=== PATIENT | male | born 1945 | race Caucasian/White ===

== ENCOUNTER 2016-07-22 01:22 | Inpatient (IN) | payer MEDICARE, BC ==
[2016-07-22 01:48] LABS: Hematocrit 37 % (42-52); Hemoglobin 11.9 g/dl (14.0-18.0); Mean Corpuscular HGB Conc 32 g/dl (31-36); Mean Corpuscular Hemoglobin 30 pg (27-31); Mean Corpuscular Volume 91 fL (80-94); Mean Platelet Volume 8 um3 (7.4-10.4); Red Blood Count 4.05 10^6/ul (4.0-5.4); Red Cell Distribution Width 14 % (10.5-15); White Blood Count 14.8 10^3/ul (3.5-10.8)
[2016-07-22 01:49] LABS: Add Diff/Slide Review? Slide Review Added; Comments Flag Yes
[2016-07-22 03:32] LABS: BUN/Creatinine Ratio 21.9 (8-20); Calcium 9.8 mg/dL (8.6-10.3); EGFR African American 89.8 (>60); EGFR Non-African American 69.8 (>60); Potassium 4.2 mmol/L (3.5-5.0); Total Bilirubin 0.2 mg/dL (0.2-1.0); Troponin I 0.05 ng/mL (<0.04)
--- NOTE | 2016-07-22 05:28 | ED ---
Porter Mcknight Billy, scribed for Edin Bueno MD on 07/22/16 at 0132 . HPI Chest Pain - HPI Summary HPI Summary: Patient is a 70 year-old male BIBA to [facility] presenting with constant midsternal chest pain starting earlier today. Per EMS, patient also c/o SOB on arrival, although he states that he is asymptomatic at this time in the ED. He was given 4x 81mg ASA and NTG [employer] which appear to have improved his symptoms. He was recently seen at [facility] yesterday with concern for pneumonia. - History of Current Complaint Chief Complaint: EDChestPainROMI Time Seen by Provider: 07/22/16 01:23 Hx Obtained From: Patient Onset/Duration: Started Hours Ago, Resolved Timing: Constant Initial Severity: Moderate Current Severity: None Pain Intensity: 0 Chest Pain Location: Mid Sternal Chest Pain Radiates: No Aggravating Factor(s): Nothing Alleviating Factor(s): Medication, NTG 123 Associated Signs and Symptoms: Positive: Shortness of Breath - Allergy/Home Medications Allergies/Adverse Reactions: Allergies Allergy/AdvReac Type Severity Reaction Status Date / Time Levofloxacin [From Levaquin] Allergy Joint Pain Verified 07/22/16 01:29 PMH/Surg Hx/FS Hx/Imm Hx Endocrine/Hematology History: Reports: Hx Thyroid Disease - hypothyroidism Denies: Hx Diabetes Cardiovascular History: Reports: Hx Hypercholesterolemia, Hx Hypertension Denies: Hx Pacemaker/ICD Respiratory History: Reports: Hx Chronic Obstructive Pulmonary Disease (COPD) Denies: Hx Asthma Musculoskeletal History: Reports: Hx Arthritis Sensory History: Denies: Hx Hearing Aid Psychiatric History: Denies: Hx Panic Disorder - Cancer History Cancer Type, Location and Year: BLADDER - Surgical History Surgery Procedure, Year, and Place: CARDIAC CATH 1989, BLADDERY SURGERY X2 1995 , PROSTATE BX 2007, Infectious Disease History: No Infectious Disease History: Denies: Traveled Outside the [place] in Last 30 Days - Family History Known Family History: Positive: Cardiac Disease, Hypertension, Diabetes, Other - CVA - Social History Lives: With Family Alcohol Use: None Hx Substance Use: No Substance Use Type: Reports: None Hx Tobacco Use: No Smoking Status (MU): Never Smoked Tobacco Review of Systems Positive: Chest Pain Positive: Shortness Of Breath All Other Systems Reviewed And Are Negative: Yes Physical Exam Triage Information Reviewed: Yes Vital Signs On Initial Exam: Initial Vitals Temp Pulse Resp BP Pulse Ox 98 F 63 17 178/81 97 07/22/16 01:24 07/22/16 01:24 07/22/16 01:24 07/22/16 01:24 07/22/16 01:24 Vital Signs Reviewed: Yes Appearance: Positive: No Pain Distress, Thin Skin: Positive: Warm Eyes: Positive: EOMI, VONNIE ENT: Positive: Hearing grossly normal Neck: Positive: Supple Respiratory/Lung Sounds: Positive: Clear to Auscultation, Breath Sounds Present Cardiovascular: Positive: RRR Abdomen Description: Positive: Nontender, Soft Bowel Sounds: Positive: Present Musculoskeletal: Positive: Strength/ROM Intact Neurological: Positive: Sensory/Motor Intact, Alert, Oriented to Person Place, Time Psychiatric: Positive: Affect/Mood Appropriate Diagnostics - Vital Signs Vital Signs Temp Pulse Resp BP Pulse Ox 07/22/16 01:24 98 F 63 17 178/81 97 - Laboratory Lab Results: Lab Results 07/22/16 07/22/16 07/22/16 Range/Units 01:38 01:38 01:38 WBC 14.8 H (3.5-10.8) 10^3/ul RBC 4.05 (4.0-5.4) 10^6/ul Hgb 11.9 L (14.0-18.0) g/dl Hct 37 L (42-52) % MCV 91 (80-94) fL MCH 30 (27-31) pg MCHC 32 (31-36) g/dl RDW 14 (10.5-15) % Plt Count 259 (150-450) 10^3/ul MPV 8 (7.4-10.4) um3 Neut % (Auto) 86.3 H (38-83) % Lymph % (Auto) 4.1 L (25-47) % Sawyer % (Auto) 6.9 (1-9) % Eos % (Auto) 0.6 (0-6) % Baso % (Auto) 2.1 H (0-2) % Absolute Neuts (auto) 12.7 H (1.5-7.7) 10^3/ul Absolute Lymphs (auto) 0.6 L (1.0-4.8) 10^3/ul Absolute Monos (auto) 1.0 H (0-0.8) 10^3/ul Absolute Eos (auto) 0.1 (0-0.6) 10^3/ul Absolute Basos (auto) 0.3 H (0-0.2) 10^3/ul Absolute Nucleated RBC 0.01 10^3/ul Nucleated RBC % 0 Sodium 136 (133-145) mmol/L Potassium 4.2 (3.5-5.0) mmol/L Chloride 103 (101-111) mmol/L Carbon Dioxide 26 (22-32) mmol/L Anion Gap 7 (2-11) mmol/L BUN 23 (6-24) mg/dL Creatinine 1.05 (0.67-1.17) mg/dL Est GFR ( Amer) 89.8 (>60) Est GFR (Non-Af Amer) 69.8 (>60) BUN/Creatinine Ratio 21.9 H (8-20) Glucose 124 H (70-100) mg/dL Lactic Acid 2.6 H* (0.5-2.0) mmol/L Calcium 9.8 (8.6-10.3) mg/dL Total Bilirubin 0.20 (0.2-1.0) mg/dL AST 18 (13-39) U/L ALT 28 (7-52) U/L Alkaline Phosphatase 96 (34-104) U/L Troponin I 0.05 H* (<0.04) ng/mL Total Protein 7.0 (6.4-8.9) g/dL Albumin 4.0 (3.2-5.2) g/dL Globulin 3.0 (2-4) g/dL Albumin/Globulin Ratio 1.3 (1-3) Result Diagrams: 07/22/16 01:38 07/22/16 01:38 Lab Statement: Any lab studies that have been ordered have been reviewed, and results considered in the medical decision making process. - Radiology CXR Xray Interpretation: No Acute Changes Radiology Interpretation Completed By: ED Physician - EKG 0121 EKG Interpretation: sinus bradycardia 57 bpm, LBBB Re-Evaluation - Re-Evaluation First Eval Re-Evaluation Time: 07:12 - repeat troponin elevated, will admit Chest Pain Course/Dx - Diagnoses Provider Diagnoses: Chest pain Discharge - Discharge Plan Condition: Stable Disposition: HOME Patient Education Materials: Chest Pain (ED) Referrals: Tony Garner DO [Primary Care Provider] - The documentation as recorded by the Porter lopez Billy accurately reflects the service I personally performed and the decisions made by me, Edin Bueno MD.
--- NOTE | 2016-07-22 07:58 | RAD ---
INDICATION: Chest pain COMPARISON: None TECHNIQUE: PA and lateral views of the chest were obtained. FINDINGS: The heart and mediastinum are normal in size and contour. The lungs are grossly clear. There is no evidence of large pleural effusion. Visualized bones are normal for the patient's age. There is no radiographic evidence of free air beneath the diaphragm IMPRESSION: No radiographic evidence of acute cardiopulmonary disease.
[2016-07-22] MEDS ORDERED: Nitroglycerin TAB 0.4 MG* 0.4 MG TAB SL ONE (08:18)
[2016-07-22] MEDS ORDERED: Ticagrelor* 90 MG TAB PO ONE (08:55)
[2016-07-22] MEDS ORDERED: Atorvastatin* 80 MG TAB PO ONE (08:55)
[2016-07-22] MEDS ORDERED: Heparin VIAL(*) 5000 UNITS/ML VIAL (FIVE THOUSAND) IV SCH (09:00)
[2016-07-22] MEDS ORDERED: Heparin DRIP 25,000 UNITS(*) 25,000 UNITS/500 ML BAG IVPB SCH (09:00)
[2016-07-22] MEDS: Aspirin Low Dose CHEW TAB* 81 MG PO SCH (09:15)
[2016-07-22] MEDS ORDERED: Heparin VIAL(*) 5000 UNITS/ML VIAL (FIVE THOUSAND) ONE (09:27)
[2016-07-22] MEDS ORDERED: Heparin DRIP 25,000 UNITS(*) 25,000 UNITS/500 ML BAG ONE (09:27)
--- NOTE | 2016-07-22 11:52 | ECHO ---
[id number] : 1945 Date: 07/22/2016 Age: 70y Height: 172.7 cm / 68.0 in Weight: 65.8 kg / 145.0 lbs Sex: M BSA: 1.8 Room#: 432 Admit Date#: 07/22/2016 Type: Inpatient Referring: Tatiana Waller Reading: Magnus Sommer DO Fermentation Engineer: Liza Rivera RN RDCS CC: Tony Garner DO Transthoracic Echocardiogram Indication: NSTEMI BP: 156/73 HR: 65 Rhythm: NSR with PACs Findings History: HTN, HLD, COPD, thyroid disease, LBBB Technical Comments: The study quality is fair. The study is technically limited due to the patient's history of COPD. Completed at 1145. Left Ventricle: The left ventricular chamber size is normal. Mild concentric left ventricular hypertrophy is observed. Left ventricular systolic function is at the lower limits of normal. The estimated ejection fraction is 50-55%. There is a left ventricular septal wall motion abnormality observed, possibly due to the presence of a left bundle branch block. There is no consistent Doppler evidence of clinically significant diastolic dysfunction. Left Atrium: The left atrial chamber size is normal. Right Ventricle: The right ventricular cavity size is normal. The right ventricular global systolic function is low normal. Right Atrium: The right atrial cavity size is normal. Aortic Valve: The aortic valve is trileaflet. There is evidence of aortic sclerosis without stenosis. There is aortic annular calcification.that is mild There is a trace of aortic regurgitation. Mitral Valve: The mitral valve leaflets are mildly thickened. There is mild mitral regurgitation. There is no evidence of mitral stenosis. Tricuspid Valve: The tricuspid valve leaflets are normal. There is trace to mild tricuspid regurgitation. There is evidence of mild pulmonary hypertension. Pulmonic Valve: The pulmonic valve structure is not well visualized. There is a trace pulmonic regurgitation. There is no pulmonic stenosis. Pericardium: There is no significant pericardial effusion. A pericardial fat pad is visualized. Aorta: There is no dilatation of the ascending aorta. The aortic arch is not well visualized. The aortic root is normal in size. Pulmonary Artery: The main pulmonary artery is not well visualized. Venous: The inferior vena cava appears normal in size. There is a greater than 50% respiratory change in the inferior vena cava dimension. Conclusions The left ventricular chamber size is normal. Mild concentric left ventricular hypertrophy is observed. Left ventricular systolic function is at the lower limits of normal with an estimated ejection fraction of 50-55%. There is a left ventricular septal wall motion abnormality observed, possibly due to the presence of a left bundle branch block. The inferoapical segment is not well visualized. The left atrial chamber size is normal. The right ventricular cavity size is normal The right ventricular global systolic function is low normal. There is evidence of aortic sclerosis without stenosis. There is mild mitral regurgitation. There is evidence of mild pulmonary hypertension. No prior studies available for comparison at time of interpretation. Measurements Name Value Normal Range RVDdMajor (2D) 3.4 cm (2.2 - 4.4) RAd ISD 4CH 3.9 cm (3.4 - 4.9) RA (A4C)W 4.1 cm (2.9 - 4.6) IVSd (2D) 1.2 cm (0.6 - 1) LVPWd (2D) 1.1 cm (0.6 - 1) LVIDd (2D) 4 cm (3.6 - 5.4) LVIDs (2D) 3.3 cm - LV FS (2D) 18 % (25 - 45) Aortic Annulus 1.8 cm (1.4 - 2.6) Ao root diameter (2D) 2.5 cm (2.1 - 3.5) Ascending Ao 2.8 cm (2.1 - 3.4) LA dimension (AP) 2D 3.5 cm (2.3 - 3.8) LAd ISD 4CH 3.8 cm (2.9 - 5.3) LA ISD 4CH W 3.9 cm (2.5 - 4.5) Name Value Normal Range LA ESV SP 4CH (A/L) 34 ml - LA ESV SP 2CH (A/L) 45 ml - LA ESV BP (A/L) 47 ml - LA ESV BP (A/L) index 26.3 ml/m2 - LA ESV SP 4CH (MOD) 31 ml - LA ESV SP 2CH (MOD) 42 ml - Name Value Normal Range MV E-wave Vmax 1 m/sec - MV deceleration time 234 msec - MV A-wave Vmax 1 m/sec - MV E:A ratio 1 ratio - LV septal e' Vmax 0.07 m/sec - LV lateral e' Vmax 0.08 m/sec - LV E:e' septal ratio 14.3 ratio - LV E:e' lateral ratio 12.5 ratio - Name Value Normal Range AV Vmax 1.9 m/sec - AV VTI 40.8 cm - AV peak gradient 14.6 mmHg - AV mean gradient 7.8 mmHg - LVOT diameter 2 cm - LVOT Vmax 1.2 m/sec - LVOT VTI 24.8 cm - DUDLEY (continuity Vmax) 2 cm2 - DUDLEY (continuity VTI) 1.9 cm2 - Name Value Normal Range TR Vmax 3.2 m/sec - TR peak gradient 41 mmHg - RAP 3 mmHg - RVSP 44 mmHg - IVC diameter 1.5 cm - Name Value Normal Range PV Vmax 0.9 m/sec -
[2016-07-22] MEDS: Omeprazole CAP* 20 MG PO SCH (12:40)
[2016-07-22] MEDS: Losartan TAB* 25 MG PO SCH (12:42)
[2016-07-22] MEDS: Tamsulosin CAP* 0.4 MG PO SCH (12:43)
[2016-07-22] MEDS: Levothyroxine TAB* 50 MCG TAB PO SCH (12:43)
--- NOTE | 2016-07-22 12:48 | CONSULT ---
Subjective Date of Service: 07/22/16 Interval History: DATE OF ADMISSION: 07/22/16 ATTENDING PHYSICIAN: Dr. River/ Tatiana Waller, STAFFING CONSULTANT/Hospitalist PRIMARY CARE PROVIDER: Dr. Dez Garner. CC: Chest pain Reason for consult: NSTEMI HISTORY OF PRESENT ILLNESS: Mr. Anderson is a 70-year-old male with a past medical history of previous 50- year smoking history, COPD, hyperlipidemia, LBBB long-standing. Has had multiple course of antibiotics over last several months for pneumonia/copd also has been given steroids.. Tuesday appt with Dr. Garner dizzy and orthostatic. Admitted to [place] low grade fever but no infectious symptoms. Separate issue from respiratory has had chest discomfort radiating to bilateral shoulders and jaw for several months at least. Patient states this happens when doing activity (had episode walking to mailbox Tuesday night) relieved with rest although states usually when not doing anything. He has had episodes when laying on right side, also with nebulizer treatment.. Last night was walking to bathroom had severe episode relieved with SL NTG x 3 and asa 81 mg x 1 in EMS. Had some mild jaw discomfort in ER self-resolved. Pain free at this time. No blood transfusion history. Baby aspirin does make arms bruise easily but he does not think taking dual anti-platelet therapy for at least a year should be an issue. No elective surgeries being planned. No palpitations, syncope or edema. Was given 180 mg of brillinta and IV heparin bolus and infusion after ruled in for ACS. Pmhx LBBB since 1987 or 1989 had coronary angiogram about that time was told ok HTN Remote bladder cancer COPD History of bladder cancer diagnosed and treated in 1995 status post 2 bladder surgeries and he has had 2 negative biopsies since. Hypothyroidism. Soc Hx: Drinks about 1 and 1/2 light beers/day, had been drinking up to 4 beers a day at one point but not recently. Smoked 1 PPD from age 18 to age 64 to Kay (at bedside) also daughter present. She is retired nursing supervisor veneer at [employer] Fam Hx: Mother had CABG x 2 in her 50's Medications Active Medications: Albuterol/Ipratropium (Duoneb Neb.Ena*) 1 neb INH Q4H PRN PRN Reason: SOB/WHEEZING Aspirin (Aspirin Low Dose Tab*) 81 mg PO DAILY HERMES Last Admin: 07/22/16 09:15 Dose: 81 mg Heparin Sodium (Porcine) (Heparin Vial(*)) 0 units IV .PER PROTOCOL HERMES PRN Reason: Protocol Last Admin: 07/22/16 09:33 Dose: 4,900 units Heparin Sodium/Dextrose (Heparin Drip 25,000 Units(*)) 25,000 units in 500 mls @ 0 mls/hr IVPB .PER RATE HERMES; Per Protocol PRN Reason: Protocol Last Admin: 07/22/16 09:34 Dose: 21 mls/hr Levothyroxine Sodium (Synthroid Tab*) 50 mcg PO DAILY [facility] Losartan Potassium (Cozaar Tab*) 100 mg PO DAILY [facility] Omeprazole (Prilosec Cap*) 40 mg PO DAILY [facility] Tamsulosin HCl (Flomax Cap*) 0.4 mg PO DAILY [facility] Home Medications: Albuterol HFA INHALER* 90 mcg INH BID 07/22/16 [History Confirmed 07/22/16] Bactrim DS 800/160 TAB* PO BID 07/22/16 [History] Losartan Potassium 100 mg PO DAILY 07/22/16 [History Confirmed 07/22/16] Omeprazole CAP* 40 mg PO DAILY 07/22/16 [History Confirmed 07/22/16] Symbicort 160/4.5 (NF) INH BID 07/22/16 [History] Synthroid 50 mcg PO DAILY 07/22/16 [History Confirmed 07/22/16] Tamsulosin HCl 0.4 mg PO DAILY 07/22/16 [History Confirmed 07/22/16] Review of Systems - Review of Systems Constitutional Symptoms: Negative: Weight Gain, Weight Loss, Weakness, Fatigue, Night Sweats, Unexplained Falls Dermatology: Negative: Rash, Skin Lesions, Skin Lumps HEENT: Negative: Change in Hearing, Vertigo Eyes: Negative: Change in Vision, Double Vision Thyroid: Positive: Primary Hypothyroidism Negative: Tremor, Frequent Defecation, Constipation, Palpitations, Primary Hyperthyroidism, Weight Loss, Weight Gain Pulmonary: Positive: Cough, Respiratory Distress, Shortness of Breath, COPD Cardiology: Positive: Chest Pain, Shortness of Breath Negative: Palpitations, Swelling of Ankles, Peripheral Vascular Dis, Edema, Syncope, Claudication, Paroxysmal Nocturnal Dyspnea, Orthopnea Gastroenterology: Negative: Abdominal Pain, Nausea, Vomiting, Anorexia, Indigestion, Difficulty Swallowing, Heartburn, Constipation, Diarrhea Genital - Urinary: Negative: Dysuria, Hematuria, Polyuria Musculoskeletal: Positive: Joint Stiffness Negative: Joint Pain, Arthritis, Low Back Pain Endocrinology: Positive: Thyroid Problems Negative: Adrenal Problems, Gonadal Problems, Obesity, Diabetes, Hyperglycemia, Hypoglycemia, Diabetic Foot Ulcers, Calluses Hematologic/Lymphatic: Positive: Easy Brusing Negative: Hx Leukemia, Hx Lymphoma, Use of Anticoagulant, Use of Antiplatelet Drugs Neurology: Negative: Normal, Headaches, Migraines, Change in Vision, Diplopia, Dizziness , Change in Balancing, Change in Coordination, Change in Memory, Change in Speech, Change in Sphincter Function, Change in Walking, Numbness\Paresthesiae, Unexplained Weakness, Hx of Stroke\TIA, Hx Seizures, Other Psychiatry: Negative: Depressed Mood, Adhedonia, Guilt Feelings, Tearfulness, Unusual Fatigue Allergic/Immunologic: Positive: Hx Seasonal Allergies, Athsma Negative: Hx Anaphylaxis, Hx Angioedema, Hx HIV, Immunocompromise Review of Systems Statement: All other review of systems negative, unless stated above. Objective Vital Signs: Temp Pulse Resp BP Pulse Ox 97.5 F 59 16 156/73 97 07/22/16 10:02 07/22/16 10:02 07/22/16 10:02 07/22/16 10:02 07/22/16 10:02 Appearance: nad, pleasant Ears/Nose/Mouth/Throat: Clear Oropharnyx, Mucous Membranes Moist Neck: NL Appearance and Movements; NL JVP Respiratory: Symmetrical Chest Expansion and Respiratory Effort, - - crackles left base Cardiovascular: NL Sounds; No Murmurs; No JVD, RRR, No Edema Abdominal: NL Sounds; No Tenderness; No Distention Extremities: No Edema Skin: No Rash or Ulcers Neurological: Alert and Oriented x 3 Laboratory Results: 07/22/16 01:38 07/22/16 01:38 INR (Anticoag Therapy) 0.95 (0.89-1.11) 07/22/16 09:05 APTT 26.9 seconds (26.0-36.3) 07/22/16 09:05 Total Bilirubin 0.20 mg/dL (0.2-1.0) 07/22/16 01:38 AST 18 U/L (13-39) 07/22/16 01:38 ALT 28 U/L (7-52) 07/22/16 01:38 Alkaline Phosphatase 96 U/L (34-104) 07/22/16 01:38 CK-MB (CK-2) 7.8 ng/mL (0.6-6.3) H 07/22/16 11:51 Total Protein 7.0 g/dL (6.4-8.9) 07/22/16 01:38 Albumin 4.0 g/dL (3.2-5.2) 07/22/16 01:38 Globulin 3.0 g/dL (2-4) 07/22/16 01:38 Albumin/Globulin Ratio 1.3 (1-3) 07/22/16 01:38 07/22/16 07/22/16 07/22/16 01:38 06:41 11:51 Troponin I 0.05 H* 0.21 H* 0.20 H* Diagnostic Imaging: EKG x 2: NSR, LBBB Assessment/Plan In summary, Rafita Anderson is a 70 year old man with a history of prior tobacco use, HTN, LBBB, recent pneumonia/COPD exacerbation admitted with acute NSTEMI, ? type 1 (plaque disruption) vs. type 2 (supply/demand related to lung disease). Has had class IV angina symptoms with rise of troponin diagnostic of acute AL - Continue aspirin 81 mg PO daily - Continue brilinta 90 mg PO BID - Continue heparin gtt - Continue intensive dose statin - Start beta-lobo soon - Cardiac catheterization with intent for revascularization recommended. Risks , benefits and alternatives discussed and patient would like to proceed. Discussed with Dr. Granados. Thank you for allowing me to participate in the cardiovascular care of this patient. Please do not hesitate to contact me with questions or concerns.
[2016-07-22 12:49] LABS: Troponin I 0.2 ng/mL (<0.04)
[2016-07-22] MEDS ORDERED: Midazolam* 1 MG/ML 5 ML VIAL (5 MG) ONE (13:31)
[2016-07-22] MEDS ORDERED: fentaNYL* 50 MCG/ML 2 ML VIAL (100 MCG VIAL) ONE (13:31)
[2016-07-22] MEDS ORDERED: Heparin 2 UNITS/ML IVPREMIX* 2,000 ML IV ONE (13:31)
[2016-07-22] MEDS ORDERED: Iohexol 350 (CONTRAST) 200 ML MDV IV ONE ×2 (13:31→14:41)
[2016-07-22] MEDS ORDERED: Lidocaine 1% INJ* 10 MG/ML 30 ML SDV ONE (13:31)
[2016-07-22] MEDS ORDERED: nitroGLYCERIN DRIP* 0 ML ONE (14:00)
[2016-07-22] MEDS ORDERED: Heparin VIAL(*) 5000 UNITS/ML VIAL (FIVE THOUSAND) SUBCUT SCH (14:00)
[2016-07-22] MEDS ORDERED: Heparin(*) 1000 UNIT/ML 10 ML VIAL CATH LAB IV ONE (14:07)
[2016-07-22] MEDS ORDERED: Nitroglycerin TAB 0.4 MG* 0.4 MG TAB SL PRN (15:06)
[2016-07-22] MEDS ORDERED: NS 0.9% 1000 ML* 1,000 ML IV SCH (15:15)
[2016-07-22] MEDS ORDERED: Metoprolol Tartrate TAB* 25 MG PO ONE (15:57)
[2016-07-22] MEDS ORDERED: Metoprolol Tartrate TAB* 25 MG ONE (16:02)
[2016-07-22] MEDS ORDERED: Atropine SYRINGE* 0.1 MG/ML 10 ML SYRINGE (1 MG) ONE (16:37)
[2016-07-22] MEDS ORDERED: nitroGLYCERIN DRIP* 250 ML ONE (17:13)
[2016-07-22] MEDS: Acetaminophen TAB* 325 MG PO PRN ×2 (17:23→21:12)
--- NOTE | 2016-07-22 19:17 | HP ---
HISTORY AND PHYSICAL: DATE OF ADMISSION: 07/22/16 ATTENDING PHYSICIAN: Dr. River *(report dictated by Leigh Osuna, PAUL). PRIMARY CARE PROVIDER: Dr. Dez Garner. CHIEF COMPLAINT: Chest pain. HISTORY OF PRESENT ILLNESS: Mr. Anderson is a 70-year-old male with a past medical history of previous 50-year smoking history, COPD, hyperlipidemia, who presents to the emergency department with complaints of intermittent chest pain worsening over the past 2 months. Mr. Anderson reports that he was diagnosed with "walking pneumonia" in the beginning of June where he did a full course of azithromycin and Bactrim and was recently admitted on 07/20/16 to yesterday 07/21/16 for bronchitis with possible sepsis and was given IV antibiotics, steroids and IV fluids. He was found to have a negative chest x-ray and negative blood cultures and was sent home yesterday. The patient reports he felt "terrible" last evening mostly due to the fact that he had not slept for 24 hours due to his hospital admission. He reports he went to bed and approximately half an hour later woke up with an acute onset of mid sternal chest wall pain that radiates both to the right and the left chest wall up his neck into his jaw and into his head. He reports the pain was 10/10 and felt like pressure. He called 911 and when the ambulance arrived, they gave him aspirin and sublingual nitro. He reports that sometime in the ambulance this pain resolved and when he arrived to [facility], the pain was resolved. He has not had any further chest pain while in the emergency department except during my evaluation he had an acute onset of first left upper jaw pain that radiated to his mid lower jaw and then into his right upper jaw. Then within 2 minutes, he said he was experiencing mid sternal chest pain that radiated to the left and right upper chest wall. The patient was going to be given a sublingual nitro but the pain resolved quickly. The patient reports that over the past 2 months he has had these exact intermittent symptoms but he states they have become more frequent and more intense. They happen when he is resting but states that it mostly happened when he is exerting himself. He denies any nausea or diaphoresis. He does report that he feels short of breath with these episodes. He reports that he does get occasional relief when he takes his albuterol inhaler. The patient denies any lower extremity swelling or orthopnea. The patient reports a history of left bundle branch block and prolapsed mitral valve and has not seen a upper tier probably since the where he underwent a cardiac catheterization due to some abnormalities on his EKG suspicious for "silent heart attacks." However, the patient reports that the cardiac catheterization was clean. In regards to the patient's respiratory illnesses, pneumonia and bronchitis, he reports that his cough has been improving. He did have a noted temperature of 101 on his admission on 07/20/16 at [place]. He denies any further fevers or chills. He denies nausea, vomiting or diarrhea. PAST MEDICAL HISTORY: 1. Hypertension. 2. Hyperlipidemia. 3. COPD. 4. History of anemia. 5. History of bladder cancer diagnosed and treated in 1995 status post 2 bladder surgeries and he has had 2 negative biopsies since. 6. Hypothyroidism. 7. History of prolapsed mitral valve. 8. History of left bundle branch block. 9. Cardiac catheterization in 1989 in which the patient reports was a "clean cath." HOME MEDICATIONS: 1. Albuterol HFA inhaler q.4-6 h. p.r.n. shortness of breath. 2. Losartan 100 mg p.o. daily. 3. Omeprazole 40 mg p.o. daily. 4. Symbicort 160 mg/4.5 INH b.i.d. 5. Synthroid 50 mcg p.o. daily. 6. Tamsulosin HCL 0.4 mg p.o. daily. The patient reports that he was prescribed an antibiotic from being discharged from [facility] yesterday, he is not sure what the antibiotic is. He is supposed to pick it up this morning, possible prescription for prednisone. Per patient, his is on her way in and knows which medication. ALLERGIES: LEVOFLOXACIN. FAMILY HISTORY: The patient's mother had a history of coronary artery disease with history of triple bypass. She passed of some "old age." His father is still alive and has a history of hypertension and congestive heart failure. SOCIAL HISTORY: The patient quit smoking 6 years ago and has a 50-year smoking history. Occasional alcohol use. Denies recreational drug use. The patient lives at home with his Kay Anderson who is her healthcare proxy. Her number is . He has two grown daughters. REVIEW OF SYSTEMS: As described above in the HPI, the patient has had upper respiratory illness since beginning of June diagnosed with pneumonia, then bronchitis. He reports that he has had intermittent night sweats over the past 2 weeks and had a temperature of 101.3 two days ago but has been afebrile since and denies chills. No nausea, vomiting, diarrhea. He reports he continues to have productive cough with white sputum but reports that this appears to be improving. He reports some intermittent shortness of breath. Please see above for description of chest pain. He denies gross hematuria or dysuria. No focal weakness or sensory loss. She denies visual complaints. No dysphagia, no arthralgias or myalgias. No rashes, lesions or open wounds. PHYSICAL EXAMINATION GENERAL APPEARANCE: Alert and oriented x3, 70-year-old male sitting up on the emergency department stretcher in no acute distress, good historian, slightly anxious. VITAL SIGNS: Temperature 98.0, heart rate 61, respirations 18, O2 sat 98% on 2 L, blood pressure 175/84. HEENT: Head is normocephalic, atraumatic. Pupils equal, reactive to light. Oropharynx is clear. Moist mucous membranes. The patient wears dentures which he does not currently have in. NECK: Supple. No cervical or supraclavicular lymphadenopathy. RESPIRATORY: Lungs are clear to auscultation bilaterally. Good aeration throughout. No accessory muscle use. CARDIAC: S1, S2. No murmurs, rubs or gallops appreciated. No lower extremity edema noted. 2+ DP pulses bilaterally. ABDOMEN: Distended, soft, nontender, obese. Normal bowel sounds x4. MUSCULOSKELETAL: Strength is 5/5 throughout. No clubbing or cyanosis noted. Full range of motion in all extremities. SKIN: No rashes, lesions or open wounds noted. Warm, pink and dry. NEUROLOGIC: Cranial nerves II through XII are intact. Moves all extremities equally. Sensation to lower extremities intact to light touch. PSYCH: Alert and oriented x3. Appears slightly anxious. LABORATORY DATA AND DIAGNOSTIC STUDIES: WBC is 14.8, HGB 11.9. HCT 37, MCV 91 , MCH 30, MCHC 32, RDW 14, platelet count 259. Sodium 136, potassium 4.2, chloride 103, carbon dioxide 26, anion gap 7, BUN 73, creatinine 1.05, glucose 124. Lactic acid 2.6, on repeat it was 1.7. Calcium 9.8, total bilirubin 0.20 , AST 18, ALT 28, alkaline phosphatase 96. Troponin; first troponin 0.05, second troponin 0.21. Total protein 7.0, albumin 4.0. Chest x-ray: No radiographic evidence for acute cardiopulmonary disease. EKG: Sinus bradycardia with a rate of 57 with a noted left bundle branch block. ASSESSMENT AND PLAN: Mr. Anderson is a 70-year-old male with a past medical history of tobacco abuse, chronic obstructive pulmonary disease, hypertension, hyperlipidemia, recent diagnosis of pneumonia and OBV visit at [place] for bronchitis with possible sepsis, discharged yesterday, who presents today with acute onset of chest pain starting in the middle of the night; however, reports worsening chest pain over 2 months. 1. Chest pain, rule out myocardial infarction. The patient will be admitted to telemetry on observation. His initial troponin was 0.05 and second troponin was 0.21. Plan to recheck the third troponin and if his troponin is elevated, we will start patient on heparin drip. We will ask for cardiology consult due to the patient's history of symptoms and he does have high risk factors. The patient's ROCKY score is 2. Continue sublingual nitro p.r.n., daily aspirin. We will order a transthoracic echocardiogram as the patient reports a history of prolapsed mitral valve, which has not been followed up on he thinks since the early . We will discuss the case with Cardiology. 2. Recent diagnosis of bronchitis with chronic obstructive pulmonary disease exacerbation. We will continue the patient's antibiotic once the confirms the medication. On exam, the patient's lungs are clear to auscultation and O2 saturations are within normal limits. DuoNeb's p.r.n. 3. Gastroesophageal reflux disease. Continue PPI. 4. Hypertension. Continue losartan 100 mg p.o. daily. 5. Hypothyroidism. Continue Synthroid 50 mcg p.o. daily. 6. DVT prophylaxis. Heparin subcu. 7. Code status. Full code. The patient's is the healthcare proxy. STATUS: Observation. TIME SPENT: Approximately 60 minutes was spent on this admission. LEIGH OSUNA NP CC: Dr. Tony Garner * [id number]/[facility] #: [id number] CAITLYN
[2016-07-22] MEDS: Metoprolol Tartrate TAB* 25 MG PO SCH (21:11)
[2016-07-22] MEDS: Ticagrelor* 90 MG TAB PO SCH (21:13)
[2016-07-23] MEDS: Albuterol/Ipratropium NEB.SOL* Albuterol 2.5 MG/Ipratropium 0.5 MG 3 ML INH PRN ×2 (00:40→11:02)
[2016-07-23 04:58] LABS: Hematocrit 35 % (42-52); Hemoglobin 11.4 g/dl (14.0-18.0); Mean Corpuscular HGB Conc 33 g/dl (31-36); Mean Corpuscular Hemoglobin 30 pg (27-31); Mean Corpuscular Volume 90 fL (80-94); Mean Platelet Volume 8 um3 (7.4-10.4); Red Blood Count 3.81 10^6/ul (4.0-5.4); Red Cell Distribution Width 13 % (10.5-15); White Blood Count 9.9 10^3/ul (3.5-10.8)
[2016-07-23 05:20] LABS: Albumin 3.3 g/dL (3.2-5.2); BUN/Creatinine Ratio 20.4 (8-20); Calcium 9.1 mg/dL (8.6-10.3); EGFR African American 97.2 (>60); EGFR Non-African American 75.6 (>60); Globulin 2.7 g/dL (2-4); HDL Cholesterol 38.7 mg/dL; Potassium 4.7 mmol/L (3.5-5.0); Total Bilirubin 0.4 mg/dL (0.2-1.0)
--- NOTE | 2016-07-23 08:08 | PN ---
Subjective Date of Service: 07/23/16 Interval History: Patient seen and examined at bedside. He reports feeling pretty well this morning and that he was able to walk around last evening. Patient has hematoma to right groin that is only mildly tender with palpation in one spot. Denies fever, chills, CP, SOB, abd pain, n/v. Telemetry: SR with LBBB 80s Family History: Unchanged from Admission Social History: Unchanged from Admission Past Medical History: Unchanged from Admission Objective Active Medications: Acetaminophen (Tylenol Tab*) 650 mg PO Q4H PRN PRN Reason: HEADACHE/PAIN Last Admin: 07/22/16 21:12 Dose: 650 mg Albuterol/Ipratropium (Duoneb Neb.Ena*) 1 neb INH Q4H PRN PRN Reason: SOB/WHEEZING Last Admin: 07/23/16 00:40 Dose: 1 neb Aspirin (Aspirin Low Dose Tab*) 81 mg PO DAILY [facility] Last Admin: 07/22/16 09:15 Dose: 81 mg Atorvastatin Calcium (Lipitor*) 80 mg PO 1700 [facility] Heparin Sodium (Porcine) (Heparin Vial(*)) 0 units IV .PER PROTOCOL [facility] PRN Reason: Protocol Last Admin: 07/22/16 09:33 Dose: 4,900 units Heparin Sodium/Dextrose (Heparin Drip 25,000 Units(*)) 25,000 units in 500 mls @ 0 mls/hr IVPB .PER RATE [facility]; Per Protocol PRN Reason: Protocol Last Admin: 07/22/16 09:34 Dose: 21 mls/hr Sodium Chloride (Ns 0.9% 1000 Ml*) 1,000 mls @ 100 mls/hr IV .per rate [facility] Last Admin: 07/22/16 15:48 Dose: 100 mls/hr Levothyroxine Sodium (Synthroid Tab*) 50 mcg PO DAILY [facility] Last Admin: 07/22/16 12:43 Dose: 50 mcg Losartan Potassium (Cozaar Tab*) 100 mg PO DAILY [facility] Last Admin: 07/22/16 12:42 Dose: 100 mg Metoprolol Tartrate (Lopressor Tab*) 12.5 mg PO BID [facility] Last Admin: 07/22/16 21:11 Dose: 12.5 mg Mometasone Furoate/Formoterol Fumar (Dulera 200/5 Mdi*) 2 puff INH BID [facility] Nitroglycerin (Nitroglycerin Tab 0.4 Mg*) 0.4 mg SL Q5M PRN PRN Reason: ANGINA Omeprazole (Prilosec Cap*) 40 mg PO DAILY [facility] Last Admin: 07/22/16 12:40 Dose: 40 mg Tamsulosin HCl (Flomax Cap*) 0.4 mg PO DAILY [facility] Last Admin: 07/22/16 12:43 Dose: 0.4 mg Ticagrelor (Brilinta*) 90 mg PO BID [facility] Last Admin: 07/22/16 21:13 Dose: 90 mg Trimethoprim/Sulfamethoxazole (Bactrim Ds 800/160 Tab*) 1 tab PO BID [facility] Vital Signs 07/22/16 07/22/16 07/22/16 09:55 10:02 13:25 Temperature 98.6 F 97.5 F Pulse Rate 62 59 Respiratory 20 16 16 Rate Blood Pressure 152/76 156/73 (mmHg) O2 Sat by Pulse 97 Oximetry 07/22/16 07/22/16 07/22/16 15:06 15:21 15:30 Temperature 98.1 F Pulse Rate 67 69 67 Respiratory 26 20 24 Rate Blood Pressure 173/78 167/80 189/78 (mmHg) O2 Sat by Pulse 95 96 97 Oximetry 07/22/16 07/22/16 07/22/16 15:36 15:51 16:00 Temperature Pulse Rate 65 67 Respiratory 21 21 25 Rate Blood Pressure 182/64 158/66 153/56 (mmHg) O2 Sat by Pulse 97 97 Oximetry 07/22/16 07/22/16 07/22/16 16:19 16:30 16:45 Temperature Pulse Rate 64 67 69 Respiratory 21 18 23 Rate Blood Pressure 158/66 153/56 (mmHg) O2 Sat by Pulse 96 96 98 Oximetry 07/22/16 07/22/16 07/22/16 17:00 17:02 17:15 Temperature Pulse Rate 68 54 63 Respiratory 23 23 27 Rate Blood Pressure 170/65 145/72 (mmHg) O2 Sat by Pulse 97 98 98 Oximetry 07/22/16 07/22/16 07/22/16 17:30 17:45 18:00 Temperature Pulse Rate 64 68 64 Respiratory 23 20 24 Rate Blood Pressure 153/65 160/65 147/61 (mmHg) O2 Sat by Pulse 98 98 98 Oximetry 07/22/16 07/22/1607/22/17 18:15 18:30 18:45 Temperature Pulse Rate 36 53 59 Respiratory 25 23 22 Rate Blood Pressure 126/58 124/59 122/55 (mmHg) O2 Sat by Pulse 95 94 93 Oximetry 07/22/16 07/22/16 07/22/16 19:00 19:15 19:30 Temperature Pulse Rate 35 52 42 Respiratory 21 21 22 Rate Blood Pressure 127/58 115/56 (mmHg) O2 Sat by Pulse 91 94 94 Oximetry 07/22/16 07/22/16 07/22/16 19:40 19:45 20:00 Temperature 98.6 F Pulse Rate 79 69 Respiratory 24 23 Rate Blood Pressure 132/52 (mmHg) O2 Sat by Pulse 97 96 Oximetry 07/22/16 07/22/16 07/22/16 20:15 20:30 21:00 Temperature Pulse Rate 69 71 43 Respiratory 24 25 19 Rate Blood Pressure 144/71 138/59 136/62 (mmHg) O2 Sat by Pulse 96 95 95 Oximetry 07/22/16 07/22/16 07/22/16 21:30 22:00 22:03 Temperature Pulse Rate 69 56 61 Respiratory 21 20 21 Rate Blood Pressure 154/64 143/63 (mmHg) O2 Sat by Pulse 96 94 94 Oximetry 07/22/16 07/22/16 07/22/16 22:30 23:00 23:27 Temperature Pulse Rate 60 52 Respiratory 20 16 21 Rate Blood Pressure 143/66 150/69 (mmHg) O2 Sat by Pulse 93 93 Oximetry 07/22/16 07/22/16 07/23/16 23:28 23:30 00:00 Temperature 98.5 F Pulse Rate Respiratory 18 Rate Blood Pressure 146/82 (mmHg) O2 Sat by Pulse Oximetry 07/23/16 07/23/16 07/23/16 00:55 01:00 01:01 Temperature Pulse Rate 89 Respiratory 18 18 Rate Blood Pressure 141/58 (mmHg) O2 Sat by Pulse 98 Oximetry 07/23/16 07/23/16 07/23/16 02:00 03:00 04:00 Temperature 98.0 F Pulse Rate Respiratory 18 16 Rate Blood Pressure 142/50 126/62 (mmHg) O2 Sat by Pulse Oximetry 07/23/16 07/23/16 07/23/16 05:00 06:00 07:00 Temperature Pulse Rate Respiratory 16 16 Rate Blood Pressure 156/70 119/56 (mmHg) O2 Sat by Pulse Oximetry Oxygen Devices in Use Now: None Appearance: Male patient, reclined in bed, in NAD Eyes: PERRLA Ears/Nose/Mouth/Throat: Clear Oropharnyx, Mucous Membranes Moist Neck: NL Appearance and Movements; NL JVP Respiratory: Symmetrical Chest Expansion and Respiratory Effort, Clear to Auscultation Cardiovascular: NL Sounds; No Murmurs; No JVD, RRR Abdominal: NL Sounds; No Tenderness; No Distention Extremities: No Edema Skin: - - right groin ecchymosis, dressing c/d/i, scattered ecchymosis to BUE Neurological: Alert and Oriented x 3 Lines/Tubes/Other Access: Clean, Dry and Intact Peripheral IV Nutrition: Taking PO's Result Diagrams: 07/23/16 04:40 07/23/16 04:40 Additional Lab and Data: Lab Results 07/22/16 07/22/16 07/22/16 Range/Units 01:38 01:38 01:38 WBC 14.8 H (3.5-10.8) 10^3/ul RBC 4.05 (4.0-5.4) 10^6/ul Hgb 11.9 L (14.0-18.0) g/dl Hct 37 L (42-52) % MCV 91 (80-94) fL MCH 30 (27-31) pg MCHC 32 (31-36) g/dl RDW 14 (10.5-15) % Plt Count 259 (150-450) 10^3/ul MPV 8 (7.4-10.4) um3 Neut % (Auto) 86.3 H (38-83) % Lymph % (Auto) 4.1 L (25-47) % Dale % (Auto) 6.9 (1-9) % Eos % (Auto) 0.6 (0-6) % Baso % (Auto) 2.1 H (0-2) % Absolute Neuts (auto) 12.7 H (1.5-7.7) 10^3/ul Absolute Lymphs (auto) 0.6 L (1.0-4.8) 10^3/ul Absolute Monos (auto) 1.0 H (0-0.8) 10^3/ul Absolute Eos (auto) 0.1 (0-0.6) 10^3/ul Absolute Basos (auto) 0.3 H (0-0.2) 10^3/ul Absolute Nucleated RBC 0.01 10^3/ul Nucleated RBC % 0 Sodium 136 (133-145) mmol/L Potassium 4.2 (3.5-5.0) mmol/L Chloride 103 (101-111) mmol/L Carbon Dioxide 26 (22-32) mmol/L Anion Gap 7 (2-11) mmol/L BUN 23 (6-24) mg/dL Creatinine 1.05 (0.67-1.17) mg/dL Est GFR ( Amer) 89.8 (>60) Est GFR (Non-Af Amer) 69.8 (>60) BUN/Creatinine Ratio 21.9 H (8-20) Glucose 124 H (70-100) mg/dL Lactic Acid 2.6 H* (0.5-2.0) mmol/L Calcium 9.8 (8.6-10.3) mg/dL Total Bilirubin 0.20 (0.2-1.0) mg/dL AST 18 (13-39) U/L ALT 28 (7-52) U/L Alkaline Phosphatase 96 (34-104) U/L Troponin I 0.05 H* (<0.04) ng/mL Total Protein 7.0 (6.4-8.9) g/dL Albumin 4.0 (3.2-5.2) g/dL Globulin 3.0 (2-4) g/dL Albumin/Globulin Ratio 1.3 (1-3) Microbiology and Other Data: Microbiology 07/22/16 08:50 Influenza Types A,B Antigen (JOSIAH) - Final Nasal Specimen received for Influenza A/B Molecular testing Assess/Plan/Problems-Billing Assessment: Mr. Anderson is a 70 yo male with a PMH of tobacco abuse, LBBB, COPD, HTN, HLD, and recent bronchitis/pneumonia who presented to the ED on 07/22/16 with c/o chest pain secondary to NSTEMI, now s/p PCI/KOMAL placement. - Patient Problems (1) NSTEMI (non-ST elevated myocardial infarction) Code(s): I21.4 - NON-ST ELEVATION (NSTEMI) MYOCARDIAL INFARCTION Comment: Now s/p percutaenous coronary intervention/drug eluting stent placement to the left circumflex artery. Echo shows LVEF 50-55%; patient has previously known LBBB. Continue ASA, ticagrelor, atorvastatin, and metoprolol. (2) COPD (chronic obstructive pulmonary disease) Code(s): J44.9 - CHRONIC OBSTRUCTIVE PULMONARY DISEASE, UNSPECIFIED Comment: Recent exacerbation with bronchitis, diagnosed at [facility]. No increased oxygen needs here, lungs CTA. Continue Dulera (therapeutic substitute for Symbicort) and PRN nebulizers. (3) Bronchitis Code(s): J40 - BRONCHITIS, NOT SPECIFIED ACUTE OR CHRONIC Comment: Previously diagnosed at [place]; continue home antibiotic of Bactrim. Continue supportive care. (4) GERD (gastroesophageal reflux disease) Code(s): K21.9 - GASTRO-ESOPHAGEAL REFLUX DISEASE WITHOUT ESOPHAGITIS Comment : Continue omeprazole. (5) Hypothyroidism Code(s): E03.9 - HYPOTHYROIDISM, UNSPECIFIED Comment: Continue home levothyroxine dose. (6) HTN (hypertension) Code(s): I10 - ESSENTIAL (PRIMARY) HYPERTENSION Comment: SBP mostly trending in 140s-160s. Continue home losartan; metoprolol added to regimen. May need to add amlodipine, per cardiology, if BP stays elevated. (7) DVT prophylaxis Code(s): OLP5452 - Comment: Heparin gtt Status and Disposition: Inpatient admission. Anticipate LOS >2 days.
[2016-07-23] MEDS: Metoprolol Tartrate TAB* 25 MG PO SCH ×2 (08:51→20:30)
[2016-07-23] MEDS: Tamsulosin CAP* 0.4 MG PO SCH (08:51)
[2016-07-23] MEDS: Sulfamethox/Trimethoprim DS 800/160* TAB PO SCH ×2 (08:51→20:30)
[2016-07-23] MEDS: Omeprazole CAP* 20 MG PO SCH (08:51)
[2016-07-23] MEDS: Ticagrelor* 90 MG TAB PO SCH ×2 (08:52→20:30)
[2016-07-23] MEDS: Losartan TAB* 25 MG PO SCH (08:52)
[2016-07-23] MEDS: Aspirin Low Dose CHEW TAB* 81 MG PO SCH (08:52)
[2016-07-23] MEDS: Levothyroxine TAB* 50 MCG TAB PO SCH (08:52)
--- NOTE | 2016-07-23 08:55 | PN ---
Subjective Date of Service: 07/23/16 Interval History: f/u nstemi no cp or change in breathing tele: sinus nery, sinus rhythm Medications Active Medications: Acetaminophen (Tylenol Tab*) 650 mg PO Q4H PRN PRN Reason: HEADACHE/PAIN Last Admin: 07/22/16 21:12 Dose: 650 mg Albuterol/Ipratropium (Duoneb Neb.Ena*) 1 neb INH Q4H PRN PRN Reason: SOB/WHEEZING Last Admin: 07/23/16 00:40 Dose: 1 neb Aspirin (Aspirin Low Dose Tab*) 81 mg PO DAILY [facility] Last Admin: 07/23/16 08:52 Dose: 81 mg Atorvastatin Calcium (Lipitor*) 80 mg PO 1700 [facility] Heparin Sodium (Porcine) (Heparin Vial(*)) 0 units IV .PER PROTOCOL [facility] PRN Reason: Protocol Last Admin: 07/22/16 09:33 Dose: 4,900 units Heparin Sodium/Dextrose (Heparin Drip 25,000 Units(*)) 25,000 units in 500 mls @ 0 mls/hr IVPB .PER RATE [facility]; Per Protocol PRN Reason: Protocol Last Admin: 07/22/16 09:34 Dose: 21 mls/hr Sodium Chloride (Ns 0.9% 1000 Ml*) 1,000 mls @ 100 mls/hr IV .per rate [facility] Last Admin: 07/22/16 15:48 Dose: 100 mls/hr Levothyroxine Sodium (Synthroid Tab*) 50 mcg PO DAILY [facility] Last Admin: 07/23/16 08:52 Dose: 50 mcg Losartan Potassium (Cozaar Tab*) 100 mg PO DAILY [facility] Last Admin: 07/23/16 08:52 Dose: 100 mg Metoprolol Tartrate (Lopressor Tab*) 12.5 mg PO BID [facility] Last Admin: 07/23/16 08:51 Dose: 12.5 mg Mometasone Furoate/Formoterol Fumar (Dulera 200/5 Mdi*) 2 puff INH BID [facility] Nitroglycerin (Nitroglycerin Tab 0.4 Mg*) 0.4 mg SL Q5M PRN PRN Reason: ANGINA Omeprazole (Prilosec Cap*) 40 mg PO DAILY [facility] Last Admin: 07/23/16 08:51 Dose: 40 mg Tamsulosin HCl (Flomax Cap*) 0.4 mg PO DAILY [facility] Last Admin: 07/23/16 08:51 Dose: 0.4 mg Ticagrelor (Brilinta*) 90 mg PO BID [facility] Last Admin: 07/23/16 08:52 Dose: 90 mg Trimethoprim/Sulfamethoxazole (Bactrim Ds 800/160 Tab*) 1 tab PO BID [facility] Last Admin: 07/23/16 08:51 Dose: 1 tab Objective Vital Signs: Temp Pulse Resp BP Pulse Ox 97.9 F 89 16 158/70 98 07/23/16 07:20 07/23/16 00:55 07/23/16 08:00 07/23/16 08:00 07/23/16 00:55 Oxygen Devices in Use Now: None Appearance: nad, pleasant Ears/Nose/Mouth/Throat: Clear Oropharnyx, Mucous Membranes Moist Neck: NL Appearance and Movements; NL JVP Respiratory: Symmetrical Chest Expansion and Respiratory Effort, - - crackles left base Cardiovascular: NL Sounds; No Murmurs; No JVD, RRR, No Edema Abdominal: NL Sounds; No Tenderness; No Distention Extremities: No Edema, - - groin not examined, being followed by Dr. Granados Skin: No Rash or Ulcers Neurological: Alert and Oriented x 3 Laboratory Results: 07/23/16 04:40 07/23/16 04:40 INR (Anticoag Therapy) 0.95 (0.89-1.11) 07/22/16 09:05 APTT 26.9 seconds (26.0-36.3) 07/22/16 09:05 Total Bilirubin 0.40 mg/dL (0.2-1.0) 07/23/16 04:40 AST 21 U/L (13-39) 07/23/16 04:40 ALT 25 U/L (7-52) 07/23/16 04:40 Alkaline Phosphatase 82 U/L (34-104) 07/23/16 04:40 CK-MB (CK-2) 7.8 ng/mL (0.6-6.3) H 07/22/16 11:51 Total Protein 6.0 g/dL (6.4-8.9) L 07/23/16 04:40 Albumin 3.3 g/dL (3.2-5.2) 07/23/16 04:40 Globulin 2.7 g/dL (2-4) 07/23/16 04:40 Albumin/Globulin Ratio 1.2 (1-3) 07/23/16 04:40 Triglycerides 165 mg/dL 07/23/16 04:40 Cholesterol 138 mg/dL 07/23/16 04:40 LDL Cholesterol 66 mg/dL 07/23/16 04:40 HDL Cholesterol 38.7 mg/dL 07/23/16 04:40 07/22/16 11:51 Troponin I 0.20 H* Diagnostic Imaging: EKG x 2: NSR, LBBB Assessment/Plan In summary, Rafita Anderson is a 70 year old man with a history of prior tobacco use, HTN, LBBB, recent pneumonia/COPD exacerbation admitted with NSTEMI s/p PCI/KOMAL to [facility], residual intermediate RCA disease, LVEF normal 50-55%. Pain free without any arrhythmias - Continue aspirin 81 mg PO daily - Continue brilinta 90 mg PO BID - Continue intensive dose statin - Continue losartan 100 mg PO daily - Continue low dose BB - If BP remains high would add norvasc Thank you for allowing me to participate in the cardiovascular care of this patient. Please do not hesitate to contact me with questions or concerns.
[2016-07-23] MEDS ORDERED: Mometasone/Formoter 200/5 MDI INH SCH ×2 (09:00→19:00)
[2016-07-23] MEDS ORDERED: Atorvastatin* 80 MG TAB PO SCH (17:00)
[2016-07-23] MEDS: amLODIPine TAB* 5 MG PO SCH (17:24)
--- NOTE | 2016-07-23 22:33 | CATH ---
CARDIAC CATHETERIZATION AND INTERVENTIONAL REPORT: DATE OF PROCEDURE: 07/22/2016 - ROOM #440 INDICATION FOR PROCEDURE: The patient with elevated enzymes, chest discomfort suggesting non-ST elevation myocardial infarction, assess for the presence of significant coronary artery disease. PROCEDURE: Coronary arteriography, primary stenting of the proximal circumflex with a 2.25 mm x 16 mm long Synergy drug-eluting stent, left heart catheterization. DESCRIPTION OF PROCEDURE: The patient was interviewed and examined on the floor of the hospital where the risks and benefits were explained. He understood them as did his family and he wished to proceed. He was brought to the cardiovascular laboratory where a formal time-out was performed. The patient was prepped and draped in sterile fashion. Right groin area was anesthetized with 1% lidocaine. The right femoral artery was cannulated and a 5- Rwandan introducer was placed. Coronary arteriography was performed using a 5- Rwandan 4 Katie left coronary catheter and 5-Rwandan 4 Katie right coronary catheter. Following this, decision was made to intervene into the circumflex artery. The existing 5-Rwandan sheath was exchanged for a 6.5-Rwandan sheath. The patient was on a heparin drip. ACT was checked and found to be subtherapeutic. Additional heparin was given with 4000 units. The ACT was then checked and found to be greater than 250. The patient had already been on Brilinta and had received his morning dose of Brilinta. Guiding views were obtained utilizing a 6-Rwandan FL-4 curve guide catheter. An All Star 190 length wire was advanced down the circumflex artery and the Synergy stent was advanced and deployed. Post-deployment injections were made to assess the result. Following this, a 5-Rwandan pigtail catheter was advanced to the ascending aorta, where central aortic pressure was recorded. The catheter was then passed across the aortic valve into the left ventricle, where left ventricular pressure was recorded. Pullback was then performed. No ventriculogram was performed as the patient had already had an echocardiogram for LV function. Following this, an injection was made into the artery sheath. It was noted that the sheath was in a branch of the femoral artery. The sheath was cautiously pulled back in order to identify the exact insertion point of this. Of note, dye initially was not getting around the sheath in its more proximal location. A guidewire was then placed throughout the whole procedure pulling back the sheath. Once the entrance point was found, the sheath was re-advanced over the dilator. The sheath was sutured in place to be manually pulled later. The total contrast used was 195 cc of Omnipaque dye. The radiation exposure included 16.5 minutes of fluoro time. The air kerma radiation was 1209 milligray. The DAPA radiation was 6991 microgray per meter squared. RESULTS: HEMODYNAMIC DATA: Left heart catheterization - Central aortic pressure recorded at 175/71 with a mean of 111, left ventricular pressure of 173 with a left ventricular end- diastolic pressure of 24. CORONARY ARTERIOGRAPHY: A. Left coronary artery. 1. Left main - the left main appeared widely patent, although somewhat small in caliber. Of note, all of the coronary arteries appeared to be somewhat small in caliber. 2. Left anterior descending artery - the left anterior descending artery had a mid 45% to 50% narrowing noted with calcium surrounding it. The continuation of left anterior descending artery had minimal luminal irregularities as it traversed the apical region onto the distal inferior wall. The second septal assignment officer had a 55% to 60% ostial narrowing. The diagonal branches had no significant narrowings, but all were of small caliber. 3. Circumflex artery - a nondominant vessel supplying a high first obtuse marginal branch followed by 2 thin obtuse marginal branches ending in a bifurcating low- lying obtuse marginal branch. There was a significant 85% to 90% blockage seen after the first obtuse marginal branch. B. Right coronary artery - a dominant vessel supplying the PDA and multiple posterior left ventricular branches, despite being a small artery in caliber, there was a 30% narrowing on the proximal portion and a 55% to 60% mid right coronary lesion. INTERVENTION INTO PROXIMAL CIRCUMFLEX: Successful reduction of 85% to 90% lesion of proximal circumflex with placement of a 2.25 mm x 16 mm Synergy drug-eluting stent with 0% residual stenosis, ROCKY-3 flow, no dissection seen. OVERALL ASSESSMENT: Significant disease involving the proximal circumflex with an 85% to 90% stenosis successfully treated as described above. There is moderate disease with a 55% to 60% mid right coronary lesion noted. Aggressive risk factor management is paramount to this patient's care and will be undertaken in hospital by Dr. Sommer, the patient's in hospital facility worker, and after discharge, by Dr. Tony Garner with followup with Cardiology at [facility] in [facility] - Dr. Zackary Manzo. CC: Dr. Magnus Sommer; Tony Garner DO, Desmond Yanes, Dr. Malik Manzo. * [id number]/[facility] #: [id number] [facility]
[2016-07-24] MEDS: Metoprolol Tartrate TAB* 25 MG PO SCH (08:36)
[2016-07-24] MEDS: Losartan TAB* 25 MG PO SCH (08:36)
[2016-07-24] MEDS: Aspirin Low Dose CHEW TAB* 81 MG PO SCH (08:36)
[2016-07-24] MEDS: Sulfamethox/Trimethoprim DS 800/160* TAB PO SCH (08:36)
[2016-07-24] MEDS: amLODIPine TAB* 5 MG PO SCH (08:37)
[2016-07-24] MEDS: Tamsulosin CAP* 0.4 MG PO SCH (08:37)
[2016-07-24] MEDS: Ticagrelor* 90 MG TAB PO SCH (08:37)
[2016-07-24] MEDS: Omeprazole CAP* 20 MG PO SCH (08:38)
--- NOTE | 2016-07-24 09:32 | DCNOTE ---
Subjective Date of Service: 07/24/16 Interval History: Patient seen and examined at bedside. He is sitting up eating breakfast. He denies dizziness, chest pain, SOB, abd pain, n/v. He denies MENDOZA, focal weakness, tingling/numbness, alterations in speech. He is hopeful to go home today. Telemetry: SR with PACs, LBBB, HR 60s Family History: Unchanged from Admission Social History: Unchanged from Admission Past Medical History: Unchanged from Admission Objective Active Medications: Acetaminophen (Tylenol Tab*) 650 mg PO Q4H PRN PRN Reason: HEADACHE/PAIN Last Admin: 07/22/16 21:12 Dose: 650 mg Albuterol/Ipratropium (Duoneb Neb.Ena*) 1 neb INH Q4H PRN PRN Reason: SOB/WHEEZING Last Admin: 07/23/16 11:02 Dose: 1 neb Amlodipine Besylate (Norvasc Tab*) 5 mg PO DAILY [facility] Last Admin: 07/24/16 08:37 Dose: 5 mg Aspirin (Aspirin Low Dose Tab*) 81 mg PO DAILY [facility] Last Admin: 07/24/16 08:36 Dose: 81 mg Atorvastatin Calcium (Lipitor*) 80 mg PO 1700 [facility] Last Admin: 07/23/16 17:24 Dose: 80 mg Sodium Chloride (Ns 0.9% 1000 Ml*) 1,000 mls @ 100 mls/hr IV .per rate [facility] Last Admin: 07/22/16 15:48 Dose: 100 mls/hr Levothyroxine Sodium (Synthroid Tab*) 50 mcg PO DAILY [facility] Last Admin: 07/23/16 08:52 Dose: 50 mcg Losartan Potassium (Cozaar Tab*) 100 mg PO DAILY [facility] Last Admin: 07/24/16 08:36 Dose: 100 mg Metoprolol Tartrate (Lopressor Tab*) 12.5 mg PO BID [facility] Last Admin: 07/24/16 08:36 Dose: 12.5 mg Mometasone Furoate/Formoterol Fumar (Dulera 200/5 Mdi*) 2 puff INH RT.BID [facility] Last Admin: 07/24/16 03:13 Dose: Not Given Nitroglycerin (Nitroglycerin Tab 0.4 Mg*) 0.4 mg SL Q5M PRN PRN Reason: ANGINA Omeprazole (Prilosec Cap*) 40 mg PO DAILY [facility] Last Admin: 07/24/16 08:38 Dose: 40 mg Tamsulosin HCl (Flomax Cap*) 0.4 mg PO DAILY [facility] Last Admin: 07/24/16 08:37 Dose: 0.4 mg Ticagrelor (Brilinta*) 90 mg PO BID [facility] Last Admin: 07/24/16 08:37 Dose: 90 mg Trimethoprim/Sulfamethoxazole (Bactrim Ds 800/160 Tab*) 1 tab PO BID [facility] Last Admin: 07/24/16 08:36 Dose: 1 tab Vital Signs 07/23/16 07/23/16 07/23/16 09:28 10:00 11:07 Temperature Pulse Rate 66 Respiratory 15 16 Rate Blood Pressure 112/96 148/73 (mmHg) O2 Sat by Pulse 99 Oximetry 07/23/16 07/23/16 07/23/16 12:29 16:33 19:38 Temperature 98.6 F 97.3 F 97.6 F Pulse Rate 58 50 68 Respiratory 16 17 16 Rate Blood Pressure 149/66 141/66 182/67 (mmHg) O2 Sat by Pulse 96 97 97 Oximetry 07/23/16 07/23/16 07/23/16 19:54 20:00 20:27 Temperature 97.9 F Pulse Rate 33 65 Respiratory 16 16 Rate Blood Pressure 155/71 (mmHg) O2 Sat by Pulse 98 96 Oximetry 07/24/16 07/24/16 07/24/16 00:16 03:42 08:27 Temperature 98.6 F 98.2 F 98.8 F Pulse Rate 32 30 58 Respiratory 16 16 18 Rate Blood Pressure 136/59 123/68 144/73 (mmHg) O2 Sat by Pulse 97 97 97 Oximetry Oxygen Devices in Use Now: None Appearance: Male patient, sitting up in bed, in NAD Eyes: PERRLA Ears/Nose/Mouth/Throat: Clear Oropharnyx, Mucous Membranes Moist Neck: NL Appearance and Movements; NL JVP, - - right carotid bruit Respiratory: Symmetrical Chest Expansion and Respiratory Effort, Clear to Auscultation Cardiovascular: NL Sounds; No Murmurs; No JVD, RRR Abdominal: NL Sounds; No Tenderness; No Distention Extremities: No Edema, No Clubbing, Cyanosis Skin: No Rash or Ulcers Neurological: Alert and Oriented x 3 Lines/Tubes/Other Access: Clean, Dry and Intact Peripheral IV Nutrition: Taking PO's Result Diagrams: 07/23/16 04:40 07/23/16 04:40 Additional Lab and Data: Lab Results 07/22/16 07/22/16 07/22/16 Range/Units 01:38 01:38 01:38 WBC 14.8 H (3.5-10.8) 10^3/ul RBC 4.05 (4.0-5.4) 10^6/ul Hgb 11.9 L (14.0-18.0) g/dl Hct 37 L (42-52) % MCV 91 (80-94) fL MCH 30 (27-31) pg MCHC 32 (31-36) g/dl RDW 14 (10.5-15) % Plt Count 259 (150-450) 10^3/ul MPV 8 (7.4-10.4) um3 Neut % (Auto) 86.3 H (38-83) % Lymph % (Auto) 4.1 L (25-47) % [place] % (Auto) 6.9 (1-9) % Eos % (Auto) 0.6 (0-6) % Baso % (Auto) 2.1 H (0-2) % Absolute Neuts (auto) 12.7 H (1.5-7.7) 10^3/ul Absolute Lymphs (auto) 0.6 L (1.0-4.8) 10^3/ul Absolute Monos (auto) 1.0 H (0-0.8) 10^3/ul Absolute Eos (auto) 0.1 (0-0.6) 10^3/ul Absolute Basos (auto) 0.3 H (0-0.2) 10^3/ul Absolute Nucleated RBC 0.01 10^3/ul Nucleated RBC % 0 Sodium 136 (133-145) mmol/L Potassium 4.2 (3.5-5.0) mmol/L Chloride 103 (101-111) mmol/L Carbon Dioxide 26 (22-32) mmol/L Anion Gap 7 (2-11) mmol/L BUN 23 (6-24) mg/dL Creatinine 1.05 (0.67-1.17) mg/dL Est GFR ( Amer) 89.8 (>60) Est GFR (Non-Af Amer) 69.8 (>60) BUN/Creatinine Ratio 21.9 H (8-20) Glucose 124 H (70-100) mg/dL Lactic Acid 2.6 H* (0.5-2.0) mmol/L Calcium 9.8 (8.6-10.3) mg/dL Total Bilirubin 0.20 (0.2-1.0) mg/dL AST 18 (13-39) U/L ALT 28 (7-52) U/L Alkaline Phosphatase 96 (34-104) U/L Troponin I 0.05 H* (<0.04) ng/mL Total Protein 7.0 (6.4-8.9) g/dL Albumin 4.0 (3.2-5.2) g/dL Globulin 3.0 (2-4) g/dL Albumin/Globulin Ratio 1.3 (1-3) Microbiology and Other Data: Microbiology 07/22/16 08:50 Influenza Types A,B Antigen (JOSIAH) - Final Nasal Specimen received for Influenza A/B Molecular testing Assess/Plan/Problems-Billing Assessment: Mr. Anderson is a 70 yo male with a PMH of tobacco abuse, LBBB, COPD, HTN, HLD, and recent bronchitis/pneumonia who presented to the ED on 07/22/16 with c/o chest pain secondary to NSTEMI, now s/p PCI/KOMAL placement. - Patient Problems (1) NSTEMI (non-ST elevated myocardial infarction) Code(s): I21.4 - NON-ST ELEVATION (NSTEMI) MYOCARDIAL INFARCTION Comment: Now s/p percutaenous coronary intervention/drug eluting stent placement to the left circumflex artery. Echo shows LVEF 50-55%; patient has previously known LBBB. Continue ASA, ticagrelor, atorvastatin, and metoprolol. Outpatient follow-up with Dr. Manzo scheduled. (2) Bruit of right carotid artery Code(s): R09.89 - OTH SYMPTOMS AND SIGNS INVOLVING THE CIRC AND RESP SYSTEMS Comment: Noted this AM. Patient states that he was told about this approx. 10 years ago and also reports a family history of other family members requiring surgical intervention. Denies any focal weakness, speech difficulty, tingling/numbness, MENDOZA, dizziness. Continue dual anti-platelet therapy for recent KOMAL placement and recommend outpatient follow-up with PCP in order to obtain carotid doppler. (3) COPD (chronic obstructive pulmonary disease) Code(s): J44.9 - CHRONIC OBSTRUCTIVE PULMONARY DISEASE, UNSPECIFIED Comment: Recent exacerbation with bronchitis, diagnosed at [facility]. No increased oxygen needs here, lungs CTA. Continue Dulera (therapeutic substitute for Symbicort) and PRN nebulizers. (4) Bronchitis Code(s): J40 - BRONCHITIS, NOT SPECIFIED ACUTE OR CHRONIC Comment: Previously diagnosed at [facility]; continue home antibiotic of Bactrim. Continue supportive care. (5) GERD (gastroesophageal reflux disease) Code(s): K21.9 - GASTRO-ESOPHAGEAL REFLUX DISEASE WITHOUT ESOPHAGITIS Comment : Continue omeprazole. (6) Hypothyroidism Code(s): E03.9 - HYPOTHYROIDISM, UNSPECIFIED Comment: Continue home levothyroxine dose. (7) HTN (hypertension) Code(s): I10 - ESSENTIAL (PRIMARY) HYPERTENSION Comment: SBP mostly trending in 120s-140s. Continue home losartan; metoprolol and amlodipine added to regimen. Follow-up with PCP for further titration of medications. (8) DVT prophylaxis Code(s): GEU8535 - Comment: Heparin gtt Status and Disposition: Inpatient admission. D/c to home.
[2016-07-24] MEDS: Levothyroxine TAB* 50 MCG TAB PO SCH (11:37)
[2016-07-24 12:08] VITALS: BP 146/71
--- NOTE | 2016-07-25 03:12 | DS ---
DISCHARGE SUMMARY: DATE OF ADMISSION: 07/22/16 DATE OF DISCHARGE: 07/24/16 PROVIDER: Brie Avalos NP ATTENDING PHYSICIAN: Dr. Dawson River*(dictated by Brie Avalos NP) CONSULTING PHYSICIANS: 1. Dr. Magnus Sommer, Cardiology. 2. Dr. José Miguel Granados, Interventional Cardiology. PRIMARY CARE PROVIDER: Dr. Tony Garner. CHAINST[employer] PANTS OUTSEAMER: Dr. Zackary Manzo. PRIMARY DISCHARGE DIAGNOSES: 1. Non-ST elevation myocardial infarction, status post cardiac catheterization with left circumflex stent placement. 2. Carotid bruit on the right. SECONDARY DISCHARGE DIAGNOSES: 1. Hypertension. 2. Hyperlipidemia. 3. Chronic obstructive pulmonary disease. 4. Anemia. 5. History of bladder cancer. 6. Hypothyroidism. 7. History of prolapsed mitral valve. 8. History of left bundle branch block. MEDICATIONS AT DISCHARGE: 1. Symbicort 160/4.5 one puff inhaled b.i.d. 2. Bactrim DS 800/160 one tab b.i.d. to be completed at home. 3. Albuterol inhaler 1 puff inhaled q.4 to 6 hours p.r.n. 4. Tamsulosin 0.4 mg daily. 5. Losartan 100 mg daily. 6. Synthroid 50 mcg daily. 7. Omeprazole 40 mg daily. New medications at discharge: 1. Amlodipine 5 mg daily. 2. Brilinta 90 mg b.i.d. 3. Metoprolol tartrate 12.5 mg b.i.d. 4. Atorvastatin 80 mg daily. 5. Aspirin 81 mg daily. DIAGNOSTIC TESTING DURING THIS ADMISSION: Transthoracic echocardiogram on 07/22. Conclusion: The left ventricular chamber size is normal. Mild concentric left ventricular hypertrophy is observed. Left ventricular systolic function is at the lower limits of normal with an estimated ejection fraction of 50% to 55%. There is a left ventricular septal wall motion abnormality observed, possibly due to the presence of a left bundle branch block. The inferoapical segment is not well visualized. The left atrial chamber size is normal. The right ventricular cavity size is normal. The right ventricular global systolic function is low normal. There is evidence of aortic sclerosis without stenosis. There is mild mitral regurgitation. There is evidence of mild pulmonary hypertension. No prior studies available for comparison at the time of interpretation. Cardiac catheterization on 07/22/16, overall assessment: Significant disease involving the proximal circumflex with an 85% to 90% stenosis successfully treated as described above, intervention into proximal circumflex: Successful reduction of 85% to 90% lesion of proximal circumflex with placement of a 2.25 mm x 16 mm Synergy drug-eluting stent with 0% residual stenosis, ROCKY-3 flow, no dissection seen. There is moderate disease with a 55% to 60% mid right coronary lesion noted. Aggressive risk factor management is paramount to this patient's care and will be undertaken in the hospital by Dr. Sommer, the patient 's in-hospital engagement executive, and after discharge by Dr. Tony Garner, with followup of Cardiology at [facility] office in [facility] with Dr. Zackary Manzo. For full details, please refer to the full report provided by Dr. Granados. HOSPITAL COURSE OF STAY: In summary, Mr. Anderson is a 70-year-old gentleman, who was admitted on 07/22/16 with concerns for chest pain. The patient was initially admitted by Tatiana Waller NP. Please refer to H and P for further details. However, the patient presented with concern for chest pain that was in the mid sternum and radiated to the left and right upper chest wall. He had reported that this has been ongoing intermittently over the past 2 months. Also , of concern, the patient has had recent respiratory illness, which includes pneumonia and bronchitis and was recently seen at [place] for this. The patient did have elevation of troponins from 0.05 to 0.21. The patient was seen by Cardiology and it was felt that the patient is having NSTEMI and he was taken to the cardiac research lab assistant on 07/22/16. He tolerated the procedure well and was monitored overnight in the ICU. The following morning, the patient was doing relatively well, was able to ambulate without difficulty. There was a small hematoma in the right groin that was soft and slightly tender to palpation. However, the patient is managing well with this. He stayed overnight on July 23 for further monitoring and for management of blood pressure. Following the procedure, the patient continued to have blood pressures that are rather labile spiking up as high as 182 systolic, but mostly staying in the 140s. We did add amlodipine to the patient's medications. He was previously on losartan which was his home medication and the patient was also started on metoprolol given his recent NSTEMI. With the addition of the amlodipine, the patient's blood pressure was able to get below 140 systolic and has been ranging from the 120s to low 140s. Extensive education was provided to the patient regarding lifestyle modification as well as maintaining his dual antiplatelet therapy as aspirin and Brilinta for his left circumflex stent placement. The patient verbalized understanding and was able to repeat back the importance of continuous medication and not missing any doses of his [place] or aspirin. On 07/24/16, the patient was noted to actually have a carotid bruit on the right. He did state when notified of this that he was told about this approximately 10 years ago, but states he has had no further workup since then. He also reports that he has two family members who have a history of surgery on their carotid arteries due to blockages. As the patient is already receiving dual- antiplatelet therapy and was unable to obtain a carotid ultrasound immediately as it is the weekend, the patient agreed to follow up with his PCP and has an appointment on Tuesday already scheduled. The patient was advised to have an outpatient carotid Doppler scheduled and to continue his antiplatelet therapy as previously discussed. He denies any concerning symptoms such as headache, dizziness, difficulty with speech, tingling or numbness, focal weakness, changes to gait, or any other neurological symptoms of concern. Prescriptions were sent to the patient's pharmacy for his new medications of aspirin, Brilinta, atorvastatin, metoprolol , and amlodipine. At the time of discharge, the patient denies any chest pain or acute complaint. He is ambulatory and tolerating p.o. intake well. He is on room air and has no increased oxygen needs. CONCERNS AT DISCHARGE: The patient will be discharged to home on 07/24/16 with a plan to follow up with his PCP on Tuesday, July 27, as well as with Dr. Manzo on August 05. DIET: Heart-healthy diet. ACTIVITY: As tolerated. The patient should follow instructions as given by Dr. Granados regarding activity. CONDITION: Stable. DISPOSITION: To home. TIME SPENT: Time spent on this discharge was approximately 45 minutes. Again this is only a brief summary of the patient's hospital course of stay. For full details, please refer to the full medical record. If you have any further questions or need further assistance, please feel free to contact me at . BRIE AVALOS NP CC: Dr. Tony Garner* [id number]/[facility] #: [id number] MTDD
== END 2016-07-24 12:45 | disposition home or self-care (01) | DRG 247 ==
LOC: ED 01:22 → MEDTELE 07:12 → ICU 15:35 → MEDTELE 07-23 10:52
PROVIDERS: ADMIT Hospitalist; ATTEND Internal Medicine
PROC: B2111ZZ Fluoroscopy of Multiple Coronary Arteries using Low Osmolar Contrast (ICD-10-PCS; 2016-07-22)
PROC: 4A023N7 Measurement of Cardiac Sampling and Pressure, Left Heart, Percutaneous Approach (ICD-10-PCS; 2016-07-22)
PROC: 027034Z Dilation of Coronary Artery, One Artery with Drug-eluting Intraluminal Device, Percutaneous Approach (ICD-10-PCS; principal; 2016-07-22 13:00)
DX: I21.4 Non-ST elevation (NSTEMI) myocardial infarction (principal); J44.9 Chronic obstructive pulmonary disease, unspecified; I27.2 Other secondary pulmonary hypertension; I10 Essential (primary) hypertension; D64.9 Anemia, unspecified; S30.1XXA Contusion of abdominal wall, initial encounter; E03.9 Hypothyroidism, unspecified; E78.00 Pure hypercholesterolemia, unspecified; M19.90 Unspecified osteoarthritis, unspecified site; E78.5 Hyperlipidemia, unspecified; I44.7 Left bundle-branch block, unspecified; I34.1 Nonrheumatic mitral (valve) prolapse; K21.9 Gastro-esophageal reflux disease without esophagitis; J40 Bronchitis, not specified as acute or chronic; I25.10 Atherosclerotic heart disease of native coronary artery without angina pectoris; R09.89 Other specified symptoms and signs involving the circulatory and respiratory systems; I34.0 Nonrheumatic mitral (valve) insufficiency; I35.8 Other nonrheumatic aortic valve disorders; Z88.1 Allergy status to other antibiotic agents; Z85.51 Personal history of malignant neoplasm of bladder; Z82.49 Family history of ischemic heart disease and other diseases of the circulatory system; Z83.3 Family history of diabetes mellitus; Z82.3 Family history of stroke; Z87.891 Personal history of nicotine dependence; Z72.89 Other problems related to lifestyle; Z87.01 Personal history of pneumonia (recurrent); Z79.51 Long term (current) use of inhaled steroids; Z79.02 Long term (current) use of antithrombotics/antiplatelets; Z79.82 Long term (current) use of aspirin
CPT/HCPCS: 36415; 71020; 80053; 80061; 82553; 83605; 84484; 85025; 85610; 85730; 87040; 87502; 93005; 93306; 93458; 94640; 94760; A9270-GY; C1769; C1876; C1887; C9600-LC; J0461; J1644; J2250; J3010

== ENCOUNTER 2017-02-03 02:40 | Observation (INO) | payer MEDICARE, BC ==
[2017-02-03] MEDS ORDERED: Aspirin Low Dose CHEW TAB* 81 MG PO ONE (02:58)
[2017-02-03 04:52] LABS: Hematocrit 34 % (42-52); Hemoglobin 11.6 g/dl (14.0-18.0); Mean Corpuscular HGB Conc 34 g/dl (31-36); Mean Corpuscular Hemoglobin 31 pg (27-31); Mean Corpuscular Volume 89 fL (80-94); Mean Platelet Volume 9 um3 (7.4-10.4); Red Cell Distribution Width 14 % (10.5-15); White Blood Count 9.9 10^3/ul (3.5-10.8)
[2017-02-03 05:04] LABS: Albumin 3.9 g/dL (3.2-5.2); BUN/Creatinine Ratio 14.7 (8-20); Calcium 9.5 mg/dL (8.6-10.3); EGFR African American 100.5 (>60); EGFR Non-African American 78.2 (>60); Globulin 2.8 g/dL (2-4); Magnesium 1.4 mg/dL (1.9-2.7); Potassium 4.1 mmol/L (3.5-5.0); Total Bilirubin 0.3 mg/dL (0.2-1.0); Total Protein 6.7 g/dL (6.4-8.9)
[2017-02-03] MEDS ORDERED: Magnesium Sulfate 2 GM IV* 2 GM/50 ML BAG IVPB ONE (05:05)
[2017-02-03 05:06] LABS: Troponin I 0.01 ng/mL (<0.04)
--- NOTE | 2017-02-03 05:57 | ED ---
Paige Mcknight Rebecca, scribed for Andrew Francisuel on 02/03/17 at 0300 . HPI Chest Pain - HPI Summary HPI Summary: Pt is a 71 y/o M BIBA who presents to ED c/o CP. Pain began at approximately 0200 this morning and upon evaluation is resolved, though it was mild, ranked 2/ 10, during nurse's triage. Pt was administered 2 NTG and 4 ASA CONSERVATION SPECIALIST by EMS which alleviated sx. Additionally c/o SOB. Denies N/V, dizziness. No prior stress tests. PMHx - July 2016 after which he had a stent put in place. FHx CAD. - History of Current Complaint Chief Complaint: EDChestPainROMI Time Seen by Provider: 02/03/17 02:45 Hx Obtained From: Patient Onset/Duration: Still Present Time of Onset: 02:00 Initial Severity: Mild - 2/10 Current Severity: None Pain Intensity: 0 Pain Scale Used: 0-10 Numeric Aggravating Factor(s): Nothing Alleviating Factor(s): EMS Tx - 2 NTG and 4 ASA Associated Signs and Symptoms: Positive: Shortness of Breath. Negative: Dizziness, Nausea, Vomiting - Allergy/Home Medications Allergies/Adverse Reactions: Allergies Allergy/AdvReac Type Severity Reaction Status Date / Time Levofloxacin [From Levaquin] Allergy Joint Pain Verified 07/22/16 01:29 PMH/Surg Hx/FS Hx/Imm Hx Endocrine/Hematology History: Reports: Hx Thyroid Disease Denies: Hx Diabetes Cardiovascular History: Reports: Hx Angina, Hx Hypercholesterolemia, Hx Hypertension, Hx Myocardial Infarction, Other Cardiovascular Problems/Disorders - Cardiac Catheterization in 1989 Denies: Hx Pacemaker/ICD, Hx Peripheral Vascular Disease Respiratory History: Reports: Hx Chronic Obstructive Pulmonary Disease (COPD), Hx Pneumonia Denies: Hx Asthma History: Reports: Other Problems/Disorders - Prostate biopsy 2007, Bladder cancer 1994 Denies: Hx Renal Disease Musculoskeletal History: Denies: Hx Arthritis Sensory History: Reports: Hx Contacts or Glasses Denies: Hx Hearing Aid Opthamlomology History: Reports: Hx Contacts or Glasses Neurological History: Denies: Hx Headaches, Hx Seizures, Hx Transient Ischemic Attacks (TIA) Psychiatric History: Denies: Hx Panic Disorder - Cancer History Cancer Type, Location and Year: BLADDER cancer 1994 - Surgical History Surgery Procedure, Year, and Place: CARDIAC CATH 1989, BLADDERY SURGERY X2 1995 , PROSTATE BX 2007, Infectious Disease History: No Infectious Disease History: Denies: Traveled Outside the [place] in Last 30 Days - Family History Known Family History: Positive: Cardiac Disease, Hypertension, Diabetes, Other - CVA - Social History Alcohol Use: Daily Alcohol Amount: 1.5 12-ounce cans per day average, 4 12-ounce can per day maximum Hx Substance Use: No Substance Use Type: Reports: None Hx Tobacco Use: No Smoking Status (MU): Former Smoker Type: Cigarettes Amount Used/How Often: 1 Pack/day Length of Time of Smoking/Using Tobacco: 52 years Have You Smoked in the Last Year: No Review of Systems Positive: Chest Pain Positive: Shortness Of Breath Negative: Vomiting, Nausea Neurological: Other - NEGATIVE: dizziness All Other Systems Reviewed And Are Negative: Yes Physical Exam - Summary Physical Exam Summary: Appearance: Well appearing, no pain distress Skin: warm, dry, reflects adequate perfusion Head/face: normal Eyes: EOMI, VONNIE ENT: normal Neck: supple, nontender Respiratory: CTA, breath sounds present Cardiovascular: RRR, pulses symmetrical Abdomen: nontender, soft Bowel: present Musculoskeletal: normal, strength/ROM intact Neuro: normal, sensory motor intact, A&Ox3 Triage Information Reviewed: Yes Vital Signs On Initial Exam: Initial Vitals Temp Pulse Resp BP Pulse Ox 98.2 F 66 18 166/63 96 02/03/17 02:44 02/03/17 02:44 02/03/17 02:44 02/03/17 02:44 02/03/17 02:44 Vital Signs Reviewed: Yes - Margie Coma Scale Coma Scale Total: 15 Diagnostics - Vital Signs Vital Signs Temp Pulse Resp BP Pulse Ox 02/03/17 02:44 98.2 F 66 18 166/63 96 - Laboratory Result Diagrams: 02/03/17 03:30 02/03/17 03:30 Lab Statement: Any lab studies that have been ordered have been reviewed, and results considered in the medical decision making process. - Radiology CXR Xray Interpretation: No Acute Changes Radiology Interpretation Completed By: ED Physician - EKG 0256 Cardiac Rate: Bradycardia - 56 bpm EKG Rhythm: Sinus Bradycardia EKG Interpretation: LBBB Chest Pain Course/Dx - Course Assessment/Plan: Pt is a 71 y/o M BIBA who presents to ED c/o CP. Pain began at approximately 0200 this morning and upon evaluation is resolved, though it was mild, ranked 2/10, during nurse's triage. Pt was administered 2 NTG and 4 ASA CONSERVATION SPECIALIST by EMS which alleviated sx. Additionally c/o SOB. Denies N/V, dizziness. No prior stress tests. PMHx VA - July 2016 after which he had a stent put in place. FHx CAD. CXR reveals no acute findings, as read by ED physician. EKG is sinus bradycardia with LBBB. In the ED course, pt was administered ASA and magnesium sulfate. Discussed care of pt with Dr. Li who accepts pt for admission. Pt will be admitted with Dx of CP r/o VA and Hx CAD. He understands and agrees. Elevated BP noted and advised f/u. - Diagnoses Provider Diagnoses: Chest pain, rule out acute myocardial infarction, Hx of coronary artery disease - Provider Notifications Discussed Care Of Patient With: Pola Li Time Discussed With Above Provider: 05:30 Instructed by Provider To: Other - Accepts pt for admission Discharge - Discharge Plan Condition: Stable Disposition: ADMITTED TO [facility] documentation as recorded by the Paige lopez Rebecca accurately reflects the service I personally performed and the decisions made by , Carl Francis.
[2017-02-03] MEDS ORDERED: Albuterol HFA INHALER* 8 gm MDI INH PRN (06:19)
--- NOTE | 2017-02-03 08:08 | RAD ---
HISTORY: Chest pain COMPARISONS: July 22, 2016 VIEWS:1: Single frontal portable view of the chest at 3:10 AM FINDINGS: LINES AND TUBES: None. CARDIOMEDIASTINAL SILHOUETTE: The cardiomediastinal silhouette is normal for portable technique. PLEURA: The costophrenic angles are sharp. No pleural abnormalities are noted. LUNG PARENCHYMA: There is hyperinflation, with biapical emphysematous change. ABDOMEN: The upper abdomen is clear. There is no subphrenic gas. BONES AND SOFT TISSUES: No bone or soft tissue abnormalities are noted. IMPRESSION: EMPHYSEMA. NO ACTIVE CARDIOPULMONARY DISEASE.
--- NOTE | 2017-02-03 08:45 | HP ---
CC: Dr. Tony Garner * HISTORY AND PHYSICAL: DATE OF ADMISSION: 02/03/17 PRIMARY CARE PHYSICIAN: Dr. Tony Garner. CHIEF COMPLAINT: Chest pain. HISTORY OF PRESENT ILLNESS: The patient is a 71-year-old gentleman, who said he had chest pain starting this morning at 1 a.m. He was going to the bathroom in the middle of the night, sitting on the toilet, urinating when he felt pain in the left center portion of his chest. It was a pressure like pain. It was about 7/10 in severity, but not nearly significant as it was when he had his coronary episode back in July, requiring stent placement. The pain was pressure like. But, there was no radiation. He did not have any nausea, or vomiting, but he was short of breath. He was not sweaty or clammy. He says it was not as severe again as it was back then, but it was similar in character. They called 911 and in the ambulance he received 3 aspirin, 2 sublingual nitroglycerin and the pain resolved. PAST MEDICAL HISTORY: Significant for: 1. Coronary artery disease with a drug-eluting stent placed in the proximal circumflex in July 2016. 2. Hypertension. 3. COPD. 4. Hyperlipidemia. 5. History of anemia. 6. History of bladder cancer, diagnosed and treated in 1995, status post 2 bladder surgeries and 2 negative biopsies since. 7. Hypothyroidism. 8. Prolapsed mitral valve. 9. Left bundle branch block. CURRENT MEDICATIONS: At home are as follows: 1. Ranitidine 100 mg twice daily. 2. Lactobacillus 1 capsule daily. 3. Multivitamin 1 tablet daily. 4. Avodart 0.5 mg daily. 5. Albuterol/ipratropium nebulized solution q. 6 hours as needed for shortness of breath. 6. Lipitor 80 mg daily. 7. Aspirin 81 mg daily. 8. Albuterol inhaler every 4 hours as needed. 9. Symbicort 160/4.5 two puffs twice daily. 10. Omeprazole 40 mg daily. 11. Metoprolol tartrate 12.5 mg twice daily. 12. Losartan 100 mg daily. 13. Brilinta 90 mg twice daily. 14. Tamsulosin 0.4 mg daily. 15. Synthroid 50 mcg daily. 16. Amlodipine 5 mg daily. ALLERGIES/ADVERSE REACTION: To LEVOFLOXACIN. FAMILY HISTORY: Mother had coronary artery disease with history of triple bypass, but she passed of old age. Father is still alive and has a history of hypertension and heart failure. SOCIAL HISTORY: The patient quit smoking 6 years ago, a [id number] smoking history. Occasional alcohol use. No recreational drug use. He lives with his , Kay Anderson, who is his healthcare proxy. Her number is [phone]. He has two grown daughters. REVIEW OF SYSTEMS: A 14-point review of systems was completed with the patient. All pertinent positives and negatives are in the history of present illness, otherwise is negative. PHYSICAL EXAMINATION GENERAL: A pleasant gentleman lying in bed, in no acute distress. VITAL SIGNS: Blood pressure 152/72, pulse ox 93% on room air, respiratory rate 17 breaths per minute, heart rate 65 beats per minute, temperature is 98.2 degrees. HEENT: Normocephalic and atraumatic. Pupils are equal, round, and reactive to light. Moist mucous membranes. NECK: Supple. No JVD, bruits, palpable thyroid, or lymphadenopathy. CHEST: Clear to auscultation and percussion bilaterally. CARDIOVASCULAR: S1 and S2 appreciated. Regular rate and rhythm. No murmurs, gallops, or rubs. ABDOMEN: Positive bowel sounds in all 4 quadrants. Soft, nontender, and nondistended. No hepatosplenomegaly. EXTREMITIES: No cyanosis, clubbing, or edema. +2 peripheral pulses bilaterally. NEUROLOGIC: Alert and oriented x3. Moves all extremities. SKIN: No rashes or abnormalities. LABORATORY DATA: Sodium 133, potassium 4.1, chloride 102, CO2 22, BUN 14, creatinine 0.95, glucose is 179. White count 9.9, hemoglobin 11.6, hematocrit 34, platelets of 282. INR is 0.98. EKG shows sinus bradycardia at a rate of 56 beats per minute, left bundle branch block pattern. Preliminary reading of chest x-ray shows it is consistent with COPD, but no acute infiltrates. ASSESSMENT AND PLAN: 1. Chest pain. I am somewhat concerned about its character being similar to his prior episode in July; furthermore, his pain was relieved with aspirin and nitroglycerin. I will admit him to the telemetry unit. I will cycle his troponins. I will get a transthoracic echocardiogram. Depending on these results, I think he may or may not benefit from a cardiac consult today. 2. Chronic obstructive pulmonary disease. This appears stable. He is breathing well, not short of breath and no wheezing. I will continue his current medications and monitor. 3. Benign prostatic hyperplasia. Stable, continue Flomax and Avodart. 4. Hypertension. Running high right now, continue current medications and adjust accordingly. 5. Gastroesophageal reflux disease. Stable, continue PPI. 6. FEN: N.p.o. in case the patient needs intervention. 7. DVT prophylaxis: Heparin subcu. 8. The patient is a full code. TIME SPENT: Over 80 minutes was spent on this H and P, more than 45 minutes of which was spent in direct [id number] contact with the patient evaluation, physical exam, counseling, and coordination of care. [id number]/CPS #: [id number] MTDD
[2017-02-03 10:17] LABS: Troponin I 0.04 ng/mL (<0.04)
[2017-02-03] MEDS ORDERED: Nitroglycerin TAB 0.4 MG* 0.4 MG TAB SL PRN (10:23)
--- NOTE | 2017-02-03 10:45 | PN ---
Subjective Date of Service: 02/03/17 Interval History: Chest pain last night on waking up and going to the BR, lasted about 15-20 min. Relieved by 1 NTG from EMS, received a 2nd NTG for high BP. Pt states pain similar but less severe than his VT in the past. Also c/o pain in calved, entire leg, hips, heaviness/weakness of legs all occur after walking some, relieved by rest. Objective Active Medications: Albuterol (Ventolin Hfa Inhaler*) 1 puff INH Q4H PRN PRN Reason: SOB/WHEEZING Albuterol/Ipratropium (Duoneb (Albuterol 2.5 Mg/Ipratropium 0.5 Mg)) 1 neb INH Q6H PRN PRN Reason: SOB/WHEEZING Amlodipine Besylate (Norvasc Tab*) 5 mg PO DAILY [facility] Aspirin (Aspirin Low Dose Tab*) 81 mg PO DAILY [facility] Atorvastatin Calcium (Lipitor*) 80 mg PO 1700 [facility] Famotidine (Pepcid Tab*) 20 mg PO BID [facility] PRN Reason: Protocol Finasteride (Proscar Tab*) 5 mg PO DAILY [facility] PRN Reason: Protocol Heparin Sodium (Porcine) (Heparin Vial(*)) 5,000 units SUBCUT Q8HR [facility] Ampicillin Sodium 1 gm/ Sodium (Chloride) 50 mls @ 200 mls/hr IVPB Q8H [facility] Lactobacillus Rhamnosus (Culturelle*) 1 cap PO DAILY [facility] Levothyroxine Sodium (Synthroid Tab*) 50 mcg PO 0600 [facility] Losartan Potassium (Cozaar Tab*) 100 mg PO DAILY [facility] Metoprolol Tartrate (Lopressor Tab*) 12.5 mg PO BID [facility] Mometasone Furoate/Formoterol Fumar (Dulera 200/5 Mdi*) 2 puff INH BID [facility] Multivitamins/Minerals (Theragran/Minerals Tab*) 1 tab PO DAILY [facility] Nitroglycerin (Nitroglycerin Tab 0.4 Mg*) 0.4 mg SL Q5M PRN PRN Reason: ANGINA Omeprazole (Prilosec Cap*) 40 mg PO DAILY [facility] Prednisone (Deltasone Tab*) 30 mg PO DAILY [facility] Tamsulosin HCl (Flomax Cap*) 0.4 mg PO DAILY [facility] Ticagrelor (Brilinta*) 90 mg PO BID [facility] Vital Signs 08/02/03/17 02/03/17 06:30 06:33 07:45 Temperature 97.8 F Pulse Rate 65 Respiratory 22 22 20 Rate Blood Pressure 170/66 179/75 (mmHg) O2 Sat by Pulse 93 Oximetry Oxygen Devices in Use Now: None Appearance: Alert, sitting up in bed. In good spirits. Looks comfortable. Neck: NL Appearance and Movements; NL JVP, No Thyroid Enlargement, Masses Respiratory: Symmetrical Chest Expansion and Respiratory Effort, Clear to Auscultation, Clear to Percussion Cardiovascular: NL Sounds; No Murmurs; No JVD, RRR, No Edema, - Extremities: No Edema, No Clubbing, Cyanosis, - Skin: No Rash or Ulcers, No Nodules or Sclerosis, - Neurological: Alert and Oriented x 3, NL Sensation Result Diagrams: 02/03/17 03:30 02/03/17 03:30 Assess/Plan/Problems-Billing Assessment: - Patient Problems (1) CAD (coronary artery disease) Current Visit: Yes Status: Acute Code(s): I25.10 - ATHSCL HEART DISEASE OF [place] CORONARY ARTERY W/O ANG PCTRS SNOMED Code(s): 87774393 Comment: Troponins 0.01, 0.04, 0.04. Pharmacologic stress test 02/03 one- day. Continue ASA, ticagrelor, BB, statin. (2) Bronchitis Current Visit: No Status: Acute Code(s): J40 - BRONCHITIS, NOT SPECIFIED ACUTE OR CHRONIC SNOMED Code(s): 43351468 Comment: Received first dose of prednisone 40 mg as outpt 02/02, amoxicillin 500 mg bid. Prednisone 30 mg 02/03 and taper, IV amoxicillin for now. (3) Hypothyroidism Current Visit: No Status: Chronic Code(s): E03.9 - HYPOTHYROIDISM, UNSPECIFIED SNOMED Code(s): 47249315 Comment: TSH add on requested. Continue home levothyroxine dose. (4) GERD (gastroesophageal reflux disease) Current Visit: No Status: Chronic Code(s): K21.9 - GASTRO-ESOPHAGEAL REFLUX DISEASE WITHOUT ESOPHAGITIS SNOMED Code(s): 976755693 Comment: Continue omeprazole. (5) Carotid stenosis, right Current Visit: Yes Status: Acute Code(s): I65.21 - OCCLUSION AND STENOSIS OF RIGHT CAROTID ARTERY SNOMED Code(s): 572754590817914 Comment: By CTA 10/2016, high-grade. Needs to finish his year of ticagrelor before surgical intervention. (6) COPD (chronic obstructive pulmonary disease) Current Visit: No Status: Chronic Code(s): J44.9 - CHRONIC OBSTRUCTIVE PULMONARY DISEASE, UNSPECIFIED SNOMED Code(s): 63094410 Comment: Quit smoking about 6 yrs ago. Continue mometasone/formoteril INH, prn neb tx. (7) HTN (hypertension) Current Visit: No Status: Chronic Code(s): I10 - ESSENTIAL (PRIMARY) HYPERTENSION SNOMED Code(s): 58662385 Comment: Continue home losartan, metoprolol, and amlodipine.
[2017-02-03] MEDS: predniSONE TAB* 10 MG PO SCH (11:10)
[2017-02-03] MEDS: Famotidine TAB* 20 MG PO SCH ×2 (11:10→20:31)
[2017-02-03] MEDS: Levothyroxine TAB* 50 MCG TAB PO SCH (11:10)
[2017-02-03] MEDS: Omeprazole CAP* 20 MG PO SCH (11:11)
[2017-02-03] MEDS: Multivitamins/Minerals TAB PO SCH (11:11)
[2017-02-03] MEDS: Aspirin Low Dose CHEW TAB* 81 MG PO SCH (11:11)
[2017-02-03] MEDS: Finasteride TAB* 5 MG PO SCH (11:11)
[2017-02-03] MEDS: Ticagrelor* 90 MG TAB PO SCH ×2 (11:11→20:31)
[2017-02-03] MEDS: Ampicillin ADVAN(*) 1 GM in NS 0.9% 50 ML* 50 ML IVPB SCH ×2 (11:13→17:22)
[2017-02-03] MEDS: Tamsulosin CAP* 0.4 MG PO SCH (11:13)
[2017-02-03 11:38] LABS: TSH (Thyroid Stimulating Horm) 1.16 mcIU/mL (0.34-5.60)
[2017-02-03] MEDS: Albuterol/Ipratropium NEB.SOL* Albuterol 2.5 MG/Ipratropium 0.5 MG 3 ML INH PRN ×2 (12:13→19:50)
--- NOTE | 2017-02-03 12:32 | RAD ---
Indication: Claudication. Comparison: No relevant prior exams available on the [facility] PACS for comparison. Technique: Ankle and brachial blood pressure measurement. Calculated ankle-brachial indices. REPORT: The right ankle brachial index is 0.89 mildly abnormal. Preserved triphasic posterior tibial and dorsalis pedis waveforms. Unremarkable RIGHT ankle pulse volume recording. The left ankle brachial index is 0.78 in claudication range. Triphasic waveforms at the posterior tibial and dorsalis pedis arteries. Mild decrease in amplitude of the LEFT ankle pulse volume recording. IMPRESSION: Mildly abnormal RIGHT and claudication range LEFT ankle brachial indices.
[2017-02-03] MEDS ORDERED: Regadenoson* 0.4 MG/5 ML SYRINGE ONE (12:58)
[2017-02-03] MEDS: Metoprolol Tartrate TAB* 25 MG PO SCH ×2 (15:12→23:32)
[2017-02-03] MEDS: Losartan TAB* 25 MG PO SCH (15:24)
[2017-02-03] MEDS: Lactobacillus Acidophilu (GG)* 1 CAP CAP PO SCH (15:24)
[2017-02-03] MEDS: amLODIPine TAB* 5 MG PO SCH (15:25)
[2017-02-03] MEDS: Heparin VIAL(*) 5000 UNITS/ML VIAL (FIVE THOUSAND) SUBCUT SCH ×2 (15:25→22:37)
[2017-02-03] MEDS: Mometasone/Formoter 200/5 MDI INH SCH ×3 (15:25→23:32)
--- NOTE | 2017-02-03 15:57 | ECHO ---
[id number] : 1945 Date: 02/03/2017 Age: 71y Height: 172.72 cm / 68.0 in Weight: 65.77 kg / 145.0 lbs Sex: M BSA: 1.78 Room#: 441 Admit Date#: 02/03/2017 Type: Inpatient Referring: Pola Li MD Reading: Magnus Sommer DO Hand Inserter Operator: Sania Bolton RDCS CC: Tony Garner DO Transthoracic Echocardiogram Indication: SOB, chest pain, CAD. BP: 170/66 HR: 73 Rhythm: NSR Findings History: [place] s/p PCI 07/23, thyroid disorder, HLD, HTN, COPD. Technical Comments: The study quality is fair. The study is technically limited due to poor parasternal windows. Completed at 1140. Left Ventricle: The left ventricular chamber size is normal. Mild concentric left ventricular hypertrophy is observed. Left ventricular systolic function is at the lower limits of normal. The estimated ejection fraction is 50-55%. There is a left ventricular septal wall motion abnormality observed, possibly due to the presence of a left bundle branch block. Abnormal left ventricular diastolic function is observed. Left Atrium: The left atrial chamber size is normal. Right Ventricle: The right ventricular cavity size is normal. The right ventricular global systolic function is mildly reduced. Right Atrium: The right atrial cavity size is normal. Aortic Valve: The aortic valve is trileaflet. The aortic valve leaflets are mildly thickened. There is a trace of aortic regurgitation. There is no evidence of aortic stenosis. Mitral Valve: The mitral valve leaflets are mildly thickened. There is trace to mild mitral regurgitation. There is no evidence of mitral stenosis. Tricuspid Valve: The tricuspid valve leaflets are normal. There is mild tricuspid regurgitation. There is evidence of mild pulmonary hypertension. There is no tricuspid stenosis. Pulmonic Valve: The pulmonic valve structure is not well visualized. There is a trace pulmonic regurgitation. There is no pulmonic stenosis. Pericardium: There is no significant pericardial effusion. Aorta: There is no dilatation of the ascending aorta. The aortic arch is not well visualized. The aortic root is normal in size. Pulmonary Artery: The main pulmonary artery is not well visualized. Venous: The inferior vena cava appears normal in size. There is a greater than 50% respiratory change in the inferior vena cava dimension. Conclusions The left ventricular chamber size is normal. Mild concentric left ventricular hypertrophy is observed. Left ventricular systolic function is at the lower limits of normal. The estimated ejection fraction is 50-55%. There is a left ventricular septal wall motion abnormality observed due to the presence of a left bundle branch block. The inferoapical segment is not well visualized. The left atrial chamber size is normal. The right ventricular cavity size is normal. The right ventricular global systolic function is mildly reduced. There is mild tricuspid regurgitation. There is evidence of mild pulmonary hypertension. Compared to prior study from 07/2016, the RV function now appears mildly reduced (was low normal previously) Measurements Name Value Normal Range RVIDd (AP) 2D 2.9 cm (0.9 - 2.6) RAd ISD 4CH 4.7 cm (3.4 - 4.9) RA (A4C)W 4.4 cm (2.9 - 4.6) IVSd (2D) 1.2 cm (0.6 - 1) LVPWd (2D) 1.2 cm (0.6 - 1) LVIDd (2D) 4.3 cm (3.6 - 5.4) LVIDs (2D) 3.2 cm - LV FS (2D) 26 % (25 - 45) Aortic Annulus 1.7 cm (1.4 - 2.6) Ao root diameter (2D) 2.6 cm (2.1 - 3.5) Ascending Ao 2.7 cm (2.1 - 3.4) LA dimension (AP) 2D 3.9 cm (2.3 - 3.8) LAd ISD 4CH 5.1 cm (2.9 - 5.3) LA ISD 4CH W 4.3 cm (2.5 - 4.5) Name Value Normal Range LA ESV SP 4CH (A/L) 60 ml - LA ESV SP 2CH (A/L) 48 ml - LA ESV BP (A/L) 54 ml - LA ESV BP (A/L) index 30.58 ml/m2 - LA ESV SP 4CH (MOD) 58 ml - LA ESV SP 2CH (MOD) 47 ml - Name Value Normal Range MV E-wave Vmax 0.78 m/sec - MV deceleration time 218.1 msec - MV A-wave Vmax 0.9 m/sec - MV E:A ratio 0.86 ratio - LV septal e' Vmax 0.07 m/sec - LV lateral e' Vmax 0.08 m/sec - LV E:e' septal ratio 11.14 ratio - LV E:e' lateral ratio 9.75 ratio - Name Value Normal Range AV Vmax 1.88 m/sec - AV VTI 39.3 cm - AV peak gradient 14.07 mmHg - AV mean gradient 6.29 mmHg - LVOT Vmax 1.17 m/sec - LVOT VTI 23.72 cm - LVOT peak gradient 5.44 mmHg - LVOT mean gradient 2.2 mmHg - Name Value Normal Range TR Vmax 2.95 m/sec - TR peak gradient 35 mmHg - RAP 3 mmHg - RVSP 38 mmHg - IVC diameter 1.84 cm - Name Value Normal Range PV Vmax 1.3 m/sec - PV peak gradient 6.91 mmHg -
[2017-02-03] MEDS ORDERED: Atorvastatin* 80 MG TAB PO SCH (17:00)
[2017-02-04] MEDS: Ampicillin ADVAN(*) 1 GM in NS 0.9% 50 ML* 50 ML IVPB SCH ×2 (03:16→10:18)
[2017-02-04] MEDS: Levothyroxine TAB* 50 MCG TAB PO SCH (05:32)
[2017-02-04] MEDS: Heparin VIAL(*) 5000 UNITS/ML VIAL (FIVE THOUSAND) SUBCUT SCH (05:32)
[2017-02-04 09:20] VITALS: BP 160/80
--- NOTE | 2017-02-04 09:25 | RAD ---
HISTORY: Chest pain, shortness breath, previous [place], cardiac catheterization, hypertension, hyperlipidemia COMPARISONS: None TECHNIQUE: A 2 day stress/rest myocardial perfusion study was performed, with pharmacologic stress. The stress portion was monitored by Dr. Fernandez. Gated SPECT imaging was performed, with CT-based attenuation correction DOSE: Stress: Technetium 99m tetrofosmin, 25.19 millicuries, injected at 1:11 PM on February 03, 2017 Rest: Technetium 99m tetrofosmin, 25.05 millicuries, injected at 6:54 AM on February 04, 2017 Pharmacologic agent: Lexiscan FINDINGS: CARDIAC MONITORING: Nondiagnostic secondary to resting EKG abnormalities. EF: 54 % with stress, 56% with rest TID: 1.02 MOTION: There is apical hypokinesia PERFUSION: There is large fixed anteroseptal defect extending to the apex. There is minimal marginal reversibility OTHER: None IMPRESSION: LARGE FIXED ANTEROSEPTAL DEFECT, CONSISTENT WITH PREVIOUS INFARCT, WITH MARGINAL REVERSIBILITY IS SUGGESTIVE OF MARGINAL ISCHEMIA. ASSESSMENT: INTERMEDIATE RISK. Based on imaging criteria from ACC/AHA 2002. Guideline Update for the Management of Patient's with Chronic Stable Angina, table 23. Noninvasive Risk Stratification.
[2017-02-04] MEDS: Mometasone/Formoter 200/5 MDI INH SCH (10:00)
[2017-02-04] MEDS: Losartan TAB* 25 MG PO SCH (10:03)
[2017-02-04] MEDS: Omeprazole CAP* 20 MG PO SCH (10:04)
[2017-02-04] MEDS: Aspirin Low Dose CHEW TAB* 81 MG PO SCH (10:05)
[2017-02-04] MEDS: Ticagrelor* 90 MG TAB PO SCH (10:06)
[2017-02-04] MEDS: Tamsulosin CAP* 0.4 MG PO SCH (10:07)
[2017-02-04] MEDS: predniSONE TAB* 10 MG PO SCH (10:07)
[2017-02-04] MEDS: Finasteride TAB* 5 MG PO SCH (10:07)
[2017-02-04] MEDS: Famotidine TAB* 20 MG PO SCH (10:08)
[2017-02-04] MEDS: Multivitamins/Minerals TAB PO SCH (10:08)
[2017-02-04] MEDS: amLODIPine TAB* 5 MG PO SCH (10:08)
[2017-02-04] MEDS: Metoprolol Tartrate TAB* 25 MG PO SCH (10:09)
[2017-02-04] MEDS: Lactobacillus Acidophilu (GG)* 1 CAP CAP PO SCH (10:38)
--- NOTE | 2017-02-05 03:25 | DS ---
CC: Dr. Garner; Dr. Granados DATE OF ADMISSION: DATE OF DISCHARGE: 02/04/17 HISTORY OF PRESENT ILLNESS: This 71-year-old man presented with chest pain. It started about 1 a.m . He was walking to the bathroom in the middle of the night. He felt pain in the left center of his chest, a pressure like pain. It was similar to when he had his coronary episode in July of year, but not as severe. He did not have any nitroglycerin at home. He called 911. The first nit roglycerin relieved the chest pain. Because his blood pressure was still high, we gave him a second nitroglycerin. He had no further chest pain in the hospital. The patient was monitored on a telemetry unit. He had 3 troponins, which were 0.01, 0.04, and 0.04. He underwent a pharmacological nuclear stress test on the day of discharge. 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 There was minimal margie nal ischemia, ejection fraction within the 50s, both at rest and with stress. As the patient has complaints of dizziness and has had heart rates in the 40s at times, his metoprol ol has been changed from 12.5 b.i.d. to 12.5 once daily. He was given a prescription for sublingual nitroglycerin to keep at home. He was given a prescription for magnesium oxide. His magnesium lev el here was 1.4. He received intravenous magnesium. This can be checked after he is on oral magnes ium for a week or two. FINAL DIAGNOSES: 1. Chest pain. 2. Coronary artery disease. 3. Bronchitis. 4. Hypothyroidism. 5. Gastroesophageal reflux disease. 6. Carotid stenosis on the right. 7. Chronic obstructive pulmonary disease. 8. Hypertension. DISCHARGE MEDICATIONS: 1. Nitroglycerin 0.4 mg sublingual every 5 minutes p.r.n. 2. Omeprazole 40 mg daily. 3. Synthroid 50 mcg daily. 4. Losartan 100 mg daily. 5. Tamsulosin 0.4 mg daily. 6. Albuterol inhaler one inhalation every 4 hours p.r.n. 7. Symbicort 160/4.5 two puffs b.i.d. 8. Aspirin 81 mg daily. 9. Atorvastatin 80 mg daily. 10. Metoprolol 12.5 mg once daily. 11. Amlodipine 5 mg daily. 12. Ticagrelor 90 mg b.i.d. 13. Multivitamin with minerals one daily. 14. Dutasteride one capsule daily. 15. Albuterol/ipratropium by nebulizer every 6 hours p.r.n. 16. Lactobacillus one capsule daily. 17. Ranitidine 150 mg b.i.d. [id number] #: [id number]
[2017-02-05] MEDS ORDERED: predniSONE TAB* 10 MG PO SCH (09:00)
[2017-02-05] MEDS ORDERED: Metoprolol Tartrate TAB* 25 MG PO SCH (09:00)
== END 2017-02-04 11:33 | disposition home or self-care (01) ==
LOC: ED 02:40 → MEDTELE 06:21
PROVIDERS: ADMIT Internal Medicine; ATTEND Internal Medicine
DX: R07.9 Chest pain, unspecified (principal); I25.2 Old myocardial infarction; R42 Dizziness and giddiness; Z79.899 Other long term (current) drug therapy; I25.10 Atherosclerotic heart disease of native coronary artery without angina pectoris; E03.9 Hypothyroidism, unspecified; J40 Bronchitis, not specified as acute or chronic; I10 Essential (primary) hypertension; I34.0 Nonrheumatic mitral (valve) insufficiency; R06.02 Shortness of breath; I27.2 Other secondary pulmonary hypertension; J44.9 Chronic obstructive pulmonary disease, unspecified; I65.21 Occlusion and stenosis of right carotid artery; I44.7 Left bundle-branch block, unspecified; K21.9 Gastro-esophageal reflux disease without esophagitis; Z87.891 Personal history of nicotine dependence; R00.1 Bradycardia, unspecified; I36.1 Nonrheumatic tricuspid (valve) insufficiency
CPT/HCPCS: 36415; 71010; 78452; 80053; 83605; 83735; 83880; 84443; 84484; 85025; 85610; 85730; 93005; 93017; 93306; 93922; 94640; 94760; 96365; 99285; A9270-GY; A9502; G0378; J1644; J2785; J3475; J7512